=== PATIENT | female | born 1955 | race Caucasian/White ===

== ENCOUNTER → 2017-05-13 | Outpatient (CLI) | payer BC, MEDICAID ==
[2017-05-13 18:19] LABS: ABSOLUTE EOSINOPHILS # (AUTO) 0.1 10^3/uL (0.0-0.6); ABSOLUTE LYMPHOCYTES (AUTO) 0.9 10^3/uL (0.5-4.7); ABSOLUTE MONOCYTES (AUTO) 0.7 10^3/uL (0.1-1.4); ABSOLUTE NEUT (AUTO) 3.6 10^3/uL (1.7-8.2); BASOPHILS % (AUTO) 0.6 % (0-2); EOSINOPHILS % (AUTO) 2.7 % (0-6); HEMOGLOBIN 15.2 g/dL (12.0-15.5); HGB HCT DIFFERENCE 0.6; LYMPHOCYTES % (AUTO) 17.4 % (13-45); MEAN CORPUSCULAR HEMOGLOBIN 29.8 pg (27.0-33.4); MEAN CORPUSCULAR HGB CONC 33.8 g/dL (32.0-36.0); MEAN CORPUSCULAR VOLUME 88 fl (80-97); MONOCYTES % (AUTO) 12.9 % (3-13); RED BLOOD COUNT 5.11 10^6/uL (3.72-5.28); RED CELL DISTRIBUTION WIDTH 14.2 % (11.5-14.0); SEGMENTED NEUTROPHILS % (AUTO) 66.4 % (42-78); WHITE BLOOD COUNT 5.4 10^3/uL (4.0-10.5)
--- NOTE | 2017-05-13 18:24 | RADIOLOGY REPORT (SQ) ---
EXAM DESCRIPTION: CHEST PA/LAT COMPLETED DATE/TIME: 05/13/2017 6:16 pm REASON FOR STUDY: CHEST PAIN, UNSPECIFIED COMPARISON: None. EXAM PARAMETERS: NUMBER OF VIEWS: two views TECHNIQUE: Digital Frontal and Lateral radiographic views of the chest acquired. RADIATION DOSE: NA LIMITATIONS: none FINDINGS: LUNGS AND PLEURA: No opacities, masses or pneumothorax. No pleural effusion. MEDIASTINUM AND HILAR STRUCTURES: No masses or contour abnormalities. HEART AND VASCULAR STRUCTURES: Heart normal size. No evidence for failure. BONES: No acute findings. HARDWARE: None in the chest. OTHER: No other significant finding. IMPRESSION: NO SIGNIFICANT RADIOGRAPHIC FINDING IN THE CHEST. TECHNICAL DOCUMENTATION: JOB ID: [id number] [employer]- All Rights Reserved
[2017-05-13 18:41] LABS: ALANINE AMINOTRANSFERASE 25 U/L (9-52); ALBUMIN 4.6 g/dL (3.5-5.0); ALKALINE PHOSPHATASE 81 U/L (38-126); ANION GAP 12 (5-19); ASPARTATE AMINO TRANSFERASE 20 U/L (14-36); BILIRUBIN,DIRECT 0.3 mg/dL (0.0-0.4); BILIRUBIN,TOTAL 0.4 mg/dL (0.2-1.3); BLOOD UREA NITROGEN 20 mg/dL (7-20); CALCIUM 9.6 mg/dL (8.4-10.2); CARBON DIOXIDE 25 mmol/L (22-30); CHLORIDE 101 mmol/L (98-107); CREATINE KINASE 60 U/L (30-135); CREATININE RESULT 0.86 mg/dL (0.52-1.25); GLUCOSE 93 mg/dL (75-110); POTASSIUM 4.7 mmol/L (3.6-5.0); SODIUM 137.6 mmol/L (137-145); TOTAL PROTEIN 7.7 g/dL (6.3-8.2)
== END ==
LOC: OD 17:23
PROVIDERS: ATTEND Physician Assistant
DX: R07.9 Chest pain, unspecified (principal); R06.02 Shortness of breath
CPT/HCPCS: 36415; 71020; 80053; 82550; 82553; 84484; 85025; 85379

== ENCOUNTER 2017-07-03 21:20 | Inpatient (IN) | payer BC, MEDICAID ==
[2017-07-03] MEDS ORDERED: ASPIRIN 81 MG TABLET, CHEWABLE PO ONE (22:38)
[2017-07-03 23:54] LABS: ABSOLUTE BASOPHILS # (AUTO) 0.1 10^3/uL (0.0-0.2); ABSOLUTE EOSINOPHILS # (AUTO) 0.3 10^3/uL (0.0-0.6); ABSOLUTE LYMPHOCYTES (AUTO) 2.2 10^3/uL (0.5-4.7); ABSOLUTE NEUT (AUTO) 4.1 10^3/uL (1.7-8.2); BASOPHILS % (AUTO) 1.1 % (0-2); EOSINOPHILS % (AUTO) 3.6 % (0-6); HEMATOCRIT 45.4 % (36.0-47.0); HEMOGLOBIN 15.5 g/dL (12.0-15.5); HGB HCT DIFFERENCE 1.1; LYMPHOCYTES % (AUTO) 28.8 % (13-45); MEAN CORPUSCULAR HEMOGLOBIN 30.3 pg (27.0-33.4); MEAN CORPUSCULAR HGB CONC 34.1 g/dL (32.0-36.0); MEAN CORPUSCULAR VOLUME 89 fl (80-97); MONOCYTES % (AUTO) 12.9 % (3-13); RED BLOOD COUNT 5.12 10^6/uL (3.72-5.28); SEGMENTED NEUTROPHILS % (AUTO) 53.6 % (42-78); WHITE BLOOD COUNT 7.7 10^3/uL (4.0-10.5)
[2017-07-04 00:12] LABS: ALANINE AMINOTRANSFERASE 27 U/L (9-52); ALBUMIN 4.9 g/dL (3.5-5.0); ALKALINE PHOSPHATASE 83 U/L (38-126); ANION GAP 13 (5-19); ASPARTATE AMINO TRANSFERASE 25 U/L (14-36); BILIRUBIN,DIRECT 0.3 mg/dL (0.0-0.4); BILIRUBIN,TOTAL 0.4 mg/dL (0.2-1.3); BLOOD UREA NITROGEN 16 mg/dL (7-20); CALCIUM 10.2 mg/dL (8.4-10.2); CARBON DIOXIDE 28 mmol/L (22-30); CHLORIDE 99 mmol/L (98-107); CREATINE KINASE 141 U/L (30-135); CREATININE RESULT 0.79 mg/dL (0.52-1.25); GLUCOSE 85 mg/dL (75-110); POTASSIUM 4.2 mmol/L (3.6-5.0); SODIUM 139.9 mmol/L (137-145); TOTAL PROTEIN 8.1 g/dL (6.3-8.2)
[2017-07-04 00:22] LABS: CREATINE KINASE MB 2.15 ng/mL (<4.55)
[2017-07-04 00:26] LABS: TROPONIN I 0.053 ng/mL
[2017-07-04] MEDS ORDERED: NITROGLYCERIN 0.4 MG/TAB 25 TAB/BOTTLE SL PRN ×2 (00:33→00:38)
[2017-07-04] MEDS ORDERED: DIAZEPAM 5 MG TABLET PO PRN (00:38)
[2017-07-04] MEDS ORDERED: AMLODIPINE BESYLATE 5 MG TABLET PO ONE (00:43)
[2017-07-04] MEDS ORDERED: ENALAPRILAT DIHYDRATE INJ/PF 1.25 MG/1 ML SDV IV PRN (00:43)
--- NOTE | 2017-07-04 00:43 | ER Document Report ---
ED General - General Chief Complaint: Chest Pain Stated Complaint: CHEST PAIN Time Seen by Provider: 07/03/17 23:47 Notes: Patient is a 61-year-old female with past medical history of coronary artery disease, hypertension, hyperlipidemia, fibromyalgia, who presents with concerns of episodic chest pain over the last 6 weeks that was worse today. Patient states several times a day she has developed acute onset of left-sided pressure. Nothing seems to improve or worsen the symptoms. This was associated with shortness of breath and nausea but no radiation of the pain. States that she had an episode while in [facility] today and EMS was called and she was brought to the emergency department. She denies any active pain at time of my assessment. She has no prior history of an MO but did have a cardiac catheterization approximately 5 years ago which did show some atherosclerotic disease. She has been following with Dr. Harrell and recently had a cardiac stress test done which was noted to be normal. TRAVEL OUTSIDE OF THE [place] IN LAST 30 DAYS: No - Related Data Allergies/Adverse Reactions: cefaclor [From Ceclor] Allergy (Verified 11/04/16 13:22) Past Medical History - General Information source: Patient - Social History Smoking Status: Never Smoker Frequency of alcohol use: None Drug Abuse: None Lives with: Family Family History: Reviewed & Not Pertinent Patient has suicidal ideation: No Patient has homicidal ideation: No Neurological Medical History: Reports: Hx Migraine Renal/ Medical History: Denies: Hx Peritoneal Dialysis Musculoskeltal Medical History: Reports Hx Arthritis, Reports Hx Fibromyalgia Past Surgical History: Reports: Hx Breast Surgery, Hx Hysterectomy, Hx Orthopedic Surgery - Immunizations Hx Diphtheria, Pertussis, Tetanus Vaccination: Yes Review of Systems - Review of Systems Notes: Constitutional: Negative for fever. HENT: Negative for sore throat. Eyes: Negative for visual changes. Cardiovascular: Positive for chest pain. Respiratory: Positive for shortness of breath. Gastrointestinal: Negative for abdominal pain, vomiting or diarrhea. Genitourinary: Negative for dysuria. Musculoskeletal: Negative for back pain. Skin: Negative for rash. Neurological: Negative for headaches, weakness or numbness. 10 point ROS negative except as marked above and in HPI. Physical Exam - Vital signs Vitals: Pulse Resp BP Pulse Ox 64 16 173/93 H 99 07/03/17 21:45 07/03/17 21:45 07/03/17 21:45 07/03/17 21:45 Interpretation: Hypertensive Notes: PHYSICAL EXAMINATION: GENERAL: Well-appearing, well-nourished and in no acute distress. HEAD: Atraumatic, normocephalic. EYES: Pupils equal round and reactive to light, extraocular movements intact, sclera anicteric, conjunctiva are normal. ENT: nares patent, oropharynx clear without exudates. Moist mucous membranes. NECK: Normal range of motion, supple without lymphadenopathy LUNGS: Breath sounds clear to auscultation bilaterally and equal. No wheezes rales or rhonchi. HEART: Regular rate and rhythm without murmurs ABDOMEN: Soft, nontender, normoactive bowel sounds. No guarding, no rebound. No masses appreciated. EXTREMITIES: Normal range of motion, no pitting or edema. No cyanosis. NEUROLOGICAL: No focal neurological deficits. Moves all extremities spontaneously and on command. PSYCH: Normal mood, normal affect. SKIN: Warm, Dry, normal turgor, no rashes or lesions noted. Course - Re-evaluation Re-evalutation: 07/04/17 00:38 Presentation of chest pain in an otherwise well appearing patient. Low clinical suspicion for ACS given clinical history, exam, EKG without ST elevations or depressions. However patient does have a moderately elevated troponin. 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 PE also seems unlikely given clinical history, absence of tachycardia or dyspnea. CXR without evidence of pneumothorax or pneumonia. No widened mediastinum. Aortic dissection also seems unlikely given history, symmetric pulses, CXR, and vitals. - Vital Signs Vital signs: Temp Pulse Resp BP Pulse Ox 64 13 165/103 H 96 07/03/17 21:45 07/04/17 02:31 07/04/17 02:31 07/04/17 02:31 - Laboratory Result Diagrams: 07/03/17 23:40 07/03/17 23:40 Laboratory results interpreted by me: 07/03/17 23:40 Creatine Kinase 141 H - Diagnostic Test Radiology reviewed: Image reviewed, Reports reviewed Radiology results interpreted by me: 07/04/17 02:48 Chest x-ray: No acute infiltrate or pneumothorax - EKG Interpretation by Me Additional EKG results interpreted by me: 07/04/17 00:39 Normal sinus rhythm. Rate 67. No ST elevations or depressions. T-wave inversions in V2 V3. QTC is 414. Discharge - Discharge Clinical Impression: Elevated troponin Chest pain Qualifiers: Chest pain type: unspecified Qualified Code(s): R07.9 - Chest pain, unspecified Condition: Good Disposition: ADMITTED OBSERVATION Admitting Provider: [facility] Unit Admitted: [facility]
[2017-07-04] MEDS: MORPHINE SULFATE 10 MG/ML INJ IV PRN ×3 (01:06→17:54)
[2017-07-04] MEDS ORDERED: HEPARIN SOD (PORCINE) 5,000 UNIT/ML 1 ML SYRINGE SUBCUT ONE (01:15)
[2017-07-04] MEDS ORDERED: ATORVASTATIN CALCIUM 80 MG TABLET PO ONE (01:15)
[2017-07-04] MEDS ORDERED: ACETAMINOPHEN 325 MG TABLET PO PRN (01:47)
--- NOTE | 2017-07-04 02:49 | RADIOLOGY REPORT (SQ) ---
EXAM DESCRIPTION: CHEST SINGLE VIEW COMPLETED DATE/TIME: 07/04/2017 1:50 am REASON FOR STUDY: CP COMPARISON: 05/13/2017. EXAM PARAMETERS: NUMBER OF VIEWS: One view. TECHNIQUE: Single frontal radiographic view of the chest acquired. RADIATION DOSE: NA LIMITATIONS: None. FINDINGS: LUNGS AND PLEURA: Minimal chronic left lower lobar atelectasis or scar. MEDIASTINUM AND HILAR STRUCTURES: No masses. Contour normal. HEART AND VASCULAR STRUCTURES: Heart normal in size. Normal vasculature. BONES: [id number] disc desiccation. HARDWARE: None in the chest. OTHER: No other significant finding. IMPRESSION: NO ACUTE RADIOGRAPHIC FINDING IN THE CHEST. TECHNICAL DOCUMENTATION: JOB ID: [id number]
[2017-07-04] MEDS ORDERED: HEPARIN SOD (PORCINE) 5,000 UNIT/ML 1 ML SYRINGE SUBCUT SCH ×2 (06:00)
[2017-07-04 06:17] LABS: Direct HDL 62 mg/dL (>40); TRIGLYCERIDES 178 mg/dL (<150)
[2017-07-04 06:27] LABS: DIRECT LDL 284 mg/dL (<100)
[2017-07-04 06:28] LABS: CHOLESTEROL 384.04 mg/dL (0-200); CREATINE KINASE MB 1.9 ng/mL (<4.55); TROPONIN I 0.062 ng/mL; VLDL CHOLESTEROL 35.6 mg/dL (10-31)
[2017-07-04] MEDS: LANSOPRAZOLE 15 MG TAB.RAP.DR PO SCH ×2 (06:57→17:54)
--- NOTE | 2017-07-04 08:24 | EKG REPORT ---
SEVERITY:- ABNORMAL ECG - SINUS RHYTHM PROBABLE LEFT ATRIAL ABNORMALITY NONSPECIFIC T ABNORMALITIES, ANT-LAT LEADS : Confirmed by: Socrates Nieto MD 04-Jul-2017 08:23:50
[2017-07-04] MEDS ORDERED: CARISOPRODOL 350 MG TABLET PO PRN (09:13)
[2017-07-04] MEDS ORDERED: ACETAMINOPHEN PO SCH (10:00)
[2017-07-04] MEDS ORDERED: DOCUSATE SODIUM 100 MG CAPSULE PO SCH (10:00)
[2017-07-04] MEDS ORDERED: [UNRECOGNIZED DRUG - OTHER] PO SCH (10:00)
[2017-07-04] MEDS ORDERED: ASPIRIN PO SCH (10:00)
[2017-07-04] MEDS ORDERED: VERAPAMIL HCL 240 MG TABLET.SA PO SCH (10:00)
[2017-07-04] MEDS: METOPROLOL TARTRATE 50 MG TABLET PO SCH ×2 (10:02→21:17)
[2017-07-04] MEDS: HYDROCODONE/ACETAMINOPHEN 10-325 MG TABLET PO PRN ×2 (10:02→23:04)
[2017-07-04] MEDS: ALPRAZOLAM 0.5 MG TABLET PO PRN ×2 (10:02→20:01)
--- NOTE | 2017-07-04 10:38 | PDOC CONSULTATION ---
Consultation Consult Date: 07/04/17 Attending physician:: ADILENE ARTEAGA Consult reason:: Chest pain History of Present Illness Admission Date/PCP: 07/04/17 01:48 ADILENE ARTEAGA MD Patient complains of: Chest pain History of Present Illness: Patient is a 61-year-old female with past medical history of coronary artery disease, hypertension, hyperlipidemia, fibromyalgia, who presents with concerns of episodic chest pain over the last 6 weeks that was worse today. Patient states several times a day she has developed acute onset of left-sided pressure. Nothing seems to improve or worsen the symptoms. This was associated with shortness of breath and nausea but no radiation of the pain. States that she had an episode while in [facility] today and EMS was called and she was brought to the emergency department. She denies any active pain at time of my assessment. She has no prior history of an ME but did have a cardiac catheterization approximately 5 years ago which did show some atherosclerotic disease. She has been followed by me and recently had a cardiac stress test done which was noted to be normal. Patient had probably an EKG in the office which were all relatively unremarkable. EKG in hospital showed some nonspecific T-wave inversion in anterior precordial lead. Cardiac enzymes are in the indeterminate range. Patient claims that she had approximately 50% blockage in 1 of the coronary arteries by a heart catheterization performed at the [facility] in [facility]. We are trying to obtain those records. Patient also describes history of fibromyalgia. She is noted to have severe dyslipidemia but has been intolerant of statins in the past. She is not sure what statins she has used. Past Medical History Cardiac Medical History: Reports: Coronary Artery Disease Neurological Medical History: Reports: Migraine Musculoskeltal Medical History: Reports: Arthritis, Fibromyalgia Psychiatric Medical History: Reports: Depression Past Surgical History Past Surgical History: Reports: Hysterectomy, Orthopedic Surgery Social History Information Source: Patient Lives with: Family Smoking Status: Former Smoker Cigarettes Packs Per Day: 0.2 Pipes Per Day: 3 Frequency of Alcohol Use: None Hx Recreational Drug Use: No Hx Prescription Drug Abuse: No - Advance Directive Resuscitation Status: Full Code Surrogate healthcare decision maker:: Patient children at the surrogate decision-maker especially patient's son. Family History Family History: Reviewed & Not Pertinent Parental Family History Reviewed: Yes Children Family History Reviewed: Yes Sibling(s) Family History Reviewed.: Yes - Negative for premature coronary artery disease or sudden cardiac in the family amongst first degree relatives. Medication/Allergy Home Medications: Alprazolam [Xanax 0.5 mg Tablet] 0.5 mg PO Q8HP PRN 07/04/17 Aspirin/Acetaminophen/Caffeine [Excedrin Extra Strength Caplet] 1 tab PO DAILY 07/04/17 Carisoprodol [Soma 350 Mg Tablet] 350 mg PO Q6HP PRN 07/04/17 Duloxetine HCl 30 mg PO QHS 07/04/17 Hydrocodone Bit/Acetaminophen [Hydrocodon-Acetaminophn 10-325] 1 tab PO Q4HP PRN 07/04/17 Metoprolol Tartrate [Lopressor 50 mg Tablet] 50 mg PO Q12 07/04/17 Verapamil HCl [Verapamil ER] 240 mg PO DAILY 07/04/17 Zolpidem Tartrate [Ambien] 10 mg PO QHS 07/04/17 Allergies/Adverse Reactions: cefaclor [From Ceclor] Allergy (Verified 11/04/16 13:22) Review of Systems Review of Systems: Please see history of present illness and past medical history as wall. Constitutional: No fever or chills reported. Head : No recent chronic headaches, recent head injury. History of migraine headaches. Eyes: No recent eye pain, diplopia, redness, discharge, acute visual changes. Ears: No recent chronic ear pain, acute hearing loss, ear discharge. Oral cavity: No recent ulcerations, bleeding, oral cavity discomfort. Neck: No recent acute neck pain reported. Hematologic: No recent easy bruising or bleeding or hematologic malignancy reported. Lymphatic: No recent lymphatic malignancy, chronic lymphadenopathy reported yet Cardiovascular system review: See history of present illness. Respiratory system review: No recent chronic cough, hemoptysis, blood clots in the lungs reported. Mild Shortness of breath on exertion Gastrointestinal system review: Negative for any recent acute or chronic abdominal pain, hematemesis, melena, recent change in bowel habits. Genitourinary system review: No recent acute or chronic hematuria, flank pain, UTI etc. reported. Skin system review: Negative for any recent abnormal bruising, no rash, no pruritus reported. Neurologic: No prior history of strokes, mini strokes, seizure disorder. Psychologic: No history of major psychosis or major depression reported. History of minor depression. Musculoskeletal: Significant problems with arthritis and fibromyalgia no acute joint swelling reported. Endocrine: No recent polyuria, polydipsia, recent heat or cold intolerance. Physical Exam Vital Signs: Temp Pulse Resp BP Pulse Ox 98.1 F 65 18 152/84 H 98 07/04/17 07:30 07/04/17 07:30 07/04/17 07:30 07/04/17 07:30 07/04/17 07:30 Intake & Output 07/03/17 07/04/17 07/05/17 06:59 06:59 06:59 Intake Total 3 Balance 3 Weight 75 kg Exam: GENERAL: well-nourished and in no acute distress. Alert and oriented x3 HEAD: Atraumatic, normocephalic. EYES: Pupils equal round and reactive to light, extraocular movements intact, sclera anicteric, conjunctiva are normal. ENT: TMs normal, nares patent, oropharynx clear without exudates. Moist mucous membranes. No oral ulcerations or bleeding gums noted NECK: supple without lymphadenopathy. Trachea is central. No cervical or axillary lymphadenopathy noted. Carotids are 2+, JVD WNL LUNGS: Respiration seems nonlabored, no significant accessory muscle action noted. Breath sounds clear to auscultation bilaterally and equal noted. No wheezes rales or rhonchi noted. No significant dullness noted on percussion. CHEST: Palpation of the chest wall shows no significant chest wall tenderness. No other significant abnormalities noted. Left-sided chest wall tenderness noted. HEART: Moro [employer], No PSH, 1/6 PHUONG aortic area, 1/6 yoder systolic murmur mitral area, no rubs, no gallops. ABDOMEN: Soft, no significant tenderness appreciated, normoactive bowel sounds. No guarding, no rebound. No rigidity noted . No masses appreciated. EXTREMITIES: Pedal pulses are 1-2+, no calf tenderness noted. No clubbing or cyanosis. Negative pedal edema noted NEUROLOGICAL: Focused neurological exam showed no significant neurologic deficit. Normal speech, no focal weakness appreciated. PSYCH: Normal mood, normal affect. Judgment and insight within normal limits. SKIN: No significant ecchymosis, rash, ulcerations or signs of pruritus noted. MUSCULOSKELETAL EXAM: No significant joint swelling noted. Results Laboratory Results: 07/04/17 05:40 Triglycerides 178 H Cholesterol 384.04 H LDL Cholesterol Direct 284 H VLDL Cholesterol 35.6 H HDL Cholesterol 62 07/04/17 07/04/17 01:55 05:40 CK-MB (CK-2) 1.90 Troponin I 0.058 0.062 EKG Comments: Sinus rhythm, minor nonspecific T-wave inversion noted Impressions: Chest X-Ray 07/03/17 22:38 IMPRESSION: NO ACUTE RADIOGRAPHIC FINDING IN THE CHEST. Assessment & Plan - Diagnosis (1) Chest pain Qualifiers: Chest pain type: unspecified Qualified Code(s): R07.9 - Chest pain, unspecified Is this a current diagnosis for this admission?: Yes (2) Acute coronary syndrome Is this a current diagnosis for this admission?: Yes (3) Coronary artery disease Qualifiers: Coronary Disease-Associated Artery/Lesion type: unspecified vessel or lesion type Associated angina: angina presence unspecified (4) Dyslipidemia Is this a current diagnosis for this admission?: Yes (5) Fibromyalgia Is this a current diagnosis for this admission?: Yes (6) Dysthymia (or depressive neurosis) Is this a current diagnosis for this admission?: Yes (7) Elevated troponin Is this a current diagnosis for this admission?: Yes (8) Hypertension Qualifiers: Hypertension type: essential hypertension Qualified Code(s): I10 - Essential (primary) hypertension Is this a current diagnosis for this admission?: Yes - Notes Notes: Chest pain: There are multiple differential diagnosis. A recent stress test was noted to be negative. Patient's troponin I is in the indeterminate range. EKG shows minor nonspecific T inversion. Agree with CTA of the chest to evaluate for other causes of chest pain and also look for any coronary calcification. Agree with ultrasound of the gallbladder. If patient continues with chest pain will refer for heart catheterization. In fact this was scheduled as an outpatient with performed on July 22 or at [facility]. Acute coronary syndrome: This is being suspected. Coronary artery disease: Patient describes history of approximately 50% lesion in 1 of the coronary arteries by a previous heart catheterization. Will try to obtain those records. Dyslipidemia: Patient has significant dyslipidemia which can cause endothelial dysfunction. Have placed patient on Lipitor 40 mg p.o. nightly. LDL extremely high therefore may need PCSK9 inhibitor therapy and may need to be qualified for that. Hypertension: Patient on verapamil and also metoprolol. Will add SHRADDHA inhibitor to the regimen. Dysthymia: Patient has depressive neurosis. There is a lot of psychological overlay. Patient noted to have dysthymia. Continue Cymbalta may consider increasing the dose. Elevated troponin I in the indeterminate range to be evaluated further. - Time Time Spent: 30 to 50 Minutes - CODE STATUS was discussed, patient remains full code. Surrogate decision-maker unchanged. Multiple medical problems were addressed. More than 50% of the time spent coordinating care, discussing management plans with involved caregivers. Management plans discussed with involved personnels. Medical decision making was of moderate to high complexity , patient's has multiple comorbidities. Medications reviewed and adjusted accordingly: Yes
--- NOTE | 2017-07-04 11:17 | RADIOLOGY REPORT (SQ) ---
EXAM DESCRIPTION: CTA CHEST COMPLETED DATE/TIME: 07/04/2017 10:58 am REASON FOR STUDY: chest pain COMPARISON: AP chest 07/04/2017 TECHNIQUE: CT scan of the chest performed using helical scanning technique with dynamic intravenous contrast injection. Images reviewed with lung, soft tissue and bone windows. Reconstructed coronal and sagittal MPR images reviewed. Additional 3 dimensional post-processing performed to develop Maximal Intensity Projection images (LA P). All images stored on PACS. All CT scanners at this facility use dose modulation, iterative reconstruction, and/or weight based d osing when appropriate to reduce radiation dose to as low as reasonably achievable (ALARA). [facility]: Dose Right [facility]: CareDose [facility]: Dose Right [facility]: Teradose 4D [facility]: oneforty CONTRAST TYPE AND DOSE: contrast/concentration: Isovue 370.00 mg/ml; Total Contrast Delivered: 110.5 ml; Total Saline Delivered: 168.1 ml RENAL FUNCTION: Creatinine 0.77 RADIATION DOSE: Up-to-date CT equipment and radiation dose reduction techniques were employed. CTDIv ol: 12.1 - 18.8 mGy. DLP: 439 mGy-cm. . LIMITATIONS: None. FINDINGS: LUNGS AND PLEURA: Bibasilar bandlike atelectasis is present. No pleural effusions. No pu lmonary nodules. No pneumothorax. AORTA AND GREAT VESSELS: No aneurysm or dissection. HEART: Trace pericardial fluid. Borderline cardiomegaly. Minimal coronary artery calcifications. PULMONARY ARTERIES: No emboli visualized in the main pulmonary arteries or the segmental branches. HILAR AND MEDIASTINAL STRUCTURES: No identified masses or abnormal nodes. HARDWARE: None in the chest. UPPER ABDOMEN: There is abnormal thickening of the gastric fundal wall on axial image 91. There are multiple hypodense liver lesions present. Dedicated CT abdomen pelvis with oral and IV contrast is r ecommended. Liver lesions identified today include: Right lobe liver 1.2 cm diameter axial image 92 Left lobe liver 2.4 x 1.8 cm axial image 92 Left lobe liver 2 x 2 cm axial image 102 THYROID AND OTHER SOFT TISSUES: No masses. No adenopathy. BONES: No acute or significant finding. 3D MIPS: Confirm above findings. OTHER: No other significant finding. IMPRESSION: Bibasilar bandlike atelectasis No CT evidence of acute pulmonary emboli or thoracic aortic dissection Abnormal gastric fundal wall thickening with liver lesions, findings are worrisome for malignancy. C onsider follow-up CT abdomen pelvis with oral and IV contrast TECHNICAL DOCUMENTATION: JOB ID: [id number] Quality ID # [id number]: Final reports with documentation of one or more dose reduction techniques (e.g., Au tomated exposure control, adjustment of the mA and/or kV according to patient size, use of iterative reconstruction technique) 2010 [employer]- All Rights Reserved
--- NOTE | 2017-07-04 11:43 | PDOC H&P ---
History of Present Illness Admission Date/PCP: 07/04/17 01:48 ADILENE ARTEAGA MD Patient complains of: Chest pain History of Present Illness: Patient is a 61-year-old female with past medical history of coronary artery disease, hypertension, hyperlipidemia, fibromyalgia, who presents with concerns of episodic chest pain over the last 6 weeks that was worse today. Patient states several times a day she has developed acute onset of left-sided pressure. Nothing seems to improve or worsen the symptoms. This was associated with shortness of breath and nausea but no radiation of the pain. States that she had an episode while in [facility] today and EMS was called and she was brought to the emergency department. She denies any active pain at time of my assessment. She has no prior history of an HI but did have a cardiac catheterization approximately 5 years ago which did show some atherosclerotic disease. She has been followed by me and recently had a cardiac stress test done which was noted to be normal. Patient had probably an EKG in the office which were all relatively unremarkable. EKG in hospital showed some nonspecific T-wave inversion in anterior precordial lead. Cardiac enzymes are in the indeterminate range. Patient claims that she had approximately 50% blockage in 1 of the coronary arteries by a heart catheterization performed at the [facility] in [facility]. We are trying to obtain those records. Patient also describes history of fibromyalgia. She is noted to have severe dyslipidemia but has been intolerant of statins in the past. She is not sure what statins she has used. Patient otherwise currently denied any chest pain patient initial cardiac enzymes so far indeterminant. Since denied any abdominal pain patient was CT angiogram done was negative for any acute pulmonary embolism but showing some liver lesion Past Medical History Cardiac Medical History: Reports: Coronary Artery Disease Neurological Medical History: Reports: Migraine Musculoskeltal Medical History: Reports: Arthritis, Fibromyalgia Psychiatric Medical History: Reports: Depression, General Anxiety Disorder Past Surgical History Past Surgical History: Reports: Hysterectomy, Orthopedic Surgery Social History Lives with: Family Smoking Status: Former Smoker Cigarettes Packs Per Day: 0.2 Pipes Per Day: 3 Frequency of Alcohol Use: None Hx Recreational Drug Use: No Hx Prescription Drug Abuse: No - Advance Directive Resuscitation Status: Full Code Family History Family History: Reviewed & Not Pertinent Parental Family History Reviewed: Yes Children Family History Reviewed: Yes Sibling(s) Family History Reviewed.: Yes Medication/Allergy Home Medications: Alprazolam [Xanax 0.5 mg Tablet] 0.5 mg PO Q8HP PRN 07/04/17 Aspirin/Acetaminophen/Caffeine [Excedrin Extra Strength Caplet] 1 tab PO DAILY 07/04/17 Carisoprodol [Soma 350 Mg Tablet] 350 mg PO Q6HP PRN 07/04/17 Duloxetine HCl 30 mg PO QHS 07/04/17 Hydrocodone Bit/Acetaminophen [Hydrocodon-Acetaminophn 10-325] 1 tab PO Q4HP PRN 07/04/17 Metoprolol Tartrate [Lopressor 50 mg Tablet] 50 mg PO Q12 07/04/17 Verapamil HCl [Verapamil ER] 240 mg PO DAILY 07/04/17 Zolpidem Tartrate [Ambien] 10 mg PO QHS 07/04/17 Allergies/Adverse Reactions: cefaclor [From Ceclor] Allergy (Verified 11/04/16 13:22) Review of Systems Constitutional: ABSENT: chills, fever(s), headache(s), weight gain, weight loss Eyes: ABSENT: visual disturbances Ears: ABSENT: hearing changes Cardiovascular: PRESENT: chest pain. ABSENT: dyspnea on exertion, edema, orthropnea, palpitations Respiratory: ABSENT: cough, hemoptysis Gastrointestinal: ABSENT: abdominal pain, constipation, diarrhea, hematemesis, hematochezia, nausea, vomiting Genitourinary: ABSENT: dysuria, hematuria Musculoskeletal: ABSENT: joint swelling Integumentary: ABSENT: rash, wounds Neurological: ABSENT: abnormal gait, abnormal speech, confusion, dizziness, focal weakness, syncope Psychiatric: ABSENT: anxiety, depression, homidical ideation, suicidal ideation Endocrine: ABSENT: cold intolerance, heat intolerance, menstrual abnormalities, polydipsia, polyuria Hematologic/Lymphatic: ABSENT: easy bleeding, easy bruising, lymphadenopathy Physical Exam Vital Signs: Temp Pulse Resp BP Pulse Ox 98.1 F 65 18 152/84 H 98 07/04/17 07:30 07/04/17 07:30 07/04/17 07:30 07/04/17 07:30 07/04/17 07:30 Intake & Output 07/03/17 07/04/17 07/05/17 06:59 06:59 06:59 Intake Total 3 Balance 3 Weight 75 kg General appearance: PRESENT: no acute distress, well-developed, well-nourished Head exam: PRESENT: atraumatic, normocephalic Eye exam: PRESENT: conjunctiva pink, EOMI, PERRLA. ABSENT: scleral icterus Ear exam: PRESENT: normal external ear exam Mouth exam: PRESENT: moist, tongue midline Neck exam: PRESENT: full ROM. ABSENT: carotid bruit, JVD, lymphadenopathy, thyromegaly Respiratory exam: PRESENT: clear to auscultation fareed Cardiovascular exam: PRESENT: RRR. ABSENT: diastolic murmur, rubs, systolic murmur Pulses: PRESENT: normal dorsalis pedis pul, +2 pedal pulses bilateral Vascular exam: PRESENT: normal capillary refill GI/Abdominal exam: PRESENT: normal bowel sounds, soft. ABSENT: distended, guarding, mass, organolmegaly, rebound, tenderness Rectal exam: PRESENT: deferred Neurological exam: PRESENT: alert, awake, oriented to person, oriented to place , oriented to time, oriented to situation, CN II-XII grossly intact. ABSENT: motor sensory deficit Psychiatric exam: PRESENT: appropriate affect, normal mood. ABSENT: homicidal ideation, suicidal ideation Skin exam: PRESENT: dry, intact, warm. ABSENT: cyanosis, rash Results Laboratory Results: 07/04/17 05:40 Triglycerides 178 H Cholesterol 384.04 H LDL Cholesterol Direct 284 H VLDL Cholesterol 35.6 H HDL Cholesterol 62 07/04/17 07/04/17 01:55 05:40 CK-MB (CK-2) 1.90 Troponin I 0.058 0.062 Impressions: Chest X-Ray 07/03/17 22:38 IMPRESSION: NO ACUTE RADIOGRAPHIC FINDING IN THE CHEST. Chest/Abdomen CTA 07/04/17 00:00 IMPRESSION: Bibasilar bandlike atelectasis No CT evidence of acute pulmonary emboli or thoracic aortic dissection Abnormal gastric fundal wall thickening with liver lesions, findings are worrisome for malignancy. Consider follow-up CT abdomen pelvis with oral and IV contrast Assessment & Plan - Diagnosis (1) Chest pain Qualifiers: Chest pain type: unspecified Qualified Code(s): R07.9 - Chest pain, unspecified Is this a current diagnosis for this admission?: YesPlan: Admit the patient in [facility] rule out acute coronary syndrome and patient recently have a stress test done by Dr. Harrell was negative with consult to Dr. Harrell for further evaluations (2) Coronary artery disease Qualifiers: Coronary Disease-Associated Artery/Lesion type: unspecified vessel or lesion type Associated angina: angina presence unspecified Is this a current diagnosis for this admission?: YesPlan: According to the patient she had a cardiac cath done in 2012 at [place] with some coronary artery disease but did not require any stent or any surgery will follow with the cardiology (3) Chronic pain syndrome Is this a current diagnosis for this admission?: YesPlan: She is currently on a chronic pain medications and getting the pain medications from the [place] patients 3 months over there (4) Dyslipidemia Is this a current diagnosis for this admission?: YesPlan: Start the patient on the Lipitor (5) Fibromyalgia Is this a current diagnosis for this admission?: YesPlan: Continues current medication (6) Hypertension Qualifiers: Hypertension type: essential hypertension Qualified Code(s): I10 - Essential (primary) hypertension Is this a current diagnosis for this admission?: YesPlan: Continues current medication and adjust the blood pressure medications (7) Depression Qualifiers: Depression Type: major depressive disorder Is this a current diagnosis for this admission?: Yes (8) Anxiety disorder Qualifiers: Anxiety disorder type: generalized anxiety disorder Qualified Code(s ): F41.1 - Generalized anxiety disorder Is this a current diagnosis for this admission?: Yes (9) Liver lesion Is this a current diagnosis for this admission?: YesPlan: Will get the CT abdomen and pelvis with IV and p.o. contrast to rule out further evaluations - Time Time Spent: 30 to 50 Minutes Medications reviewed and adjusted accordingly: Yes Anticipated discharge: Home Within: Other - Inpatient Certification Medical Necessity: Need Close Monitoring Due to Risk of Patient Decompensation Post Hospital Care: D/C Guest Service Representative Documentation - Plan Summary Plan Summary: Discussed with the patient and the cardiology and admit the patient and see other orders
[2017-07-04] MEDS: RAMIPRIL 2.5 MG CAPSULE PO SCH (13:48)
--- NOTE | 2017-07-04 15:54 | RADIOLOGY REPORT (SQ) ---
EXAM DESCRIPTION: U/S ABDOMEN COMPLETE W/O DOP COMPLETED DATE/TIME: 07/04/2017 3:08 pm REASON FOR STUDY: epigastric pain COMPARISON: None. TECHNIQUE: Dynamic and static grayscale images acquired of the abdomen and recorded on PACS. Kevino danny selected color Doppler and spectral images recorded. LIMITATIONS: None. FINDINGS: PANCREAS: The head of the pancreas is normal. The body and tail were obscured by gas. LIVER: 17.4 cm. There are multiple slightly hyperechoic lesions in the liver. The largest is in the left lobe and measures 24 mm in largest diameter. A 2nd lesion in the left lobe measures 19 mm. A lesion in the right lobe measures 23 mm. LIVER VASCULATURE: Normal directional flow of the main portal vein and hepatic veins. GALLBLADDER: No stones. Normal wall thickness. No pericholecystic fluid. ULTRASOUND-DETECTED BRADSHAW'S SIGN: Negative. INTRAHEPATIC DUCTS AND COMMON DUCT: The common bile duct is normal at 4 mm. There is no intrahepatic ductal dilatation. INFERIOR VENA CAVA: Normal flow. AORTA: No aneurysm. RIGHT KIDNEY: Normal size, 10.4 cm. Normal echogenicity. No solid or suspicious masses. No hyd ronephrosis. No calcifications. LEFT KIDNEY: Normal size, 9.7 cm. Normal echogenicity. No solid or suspicious masses. No hydro nephrosis. No calcifications. SPLEEN: Normal size, 8.9 cm. No masses. PERITONEAL AND PLEURAL SPACES: No ascites or effusions. OTHER: No other significant finding. IMPRESSION: There are multiple slightly hyperechoic lesions in the liver. They do not appear to be echogenic to the degree that a hemangioma might be. These certainly could represent metastatic neopl asm. Neoplasms that can produce hyperechoic metastases included colon, or renal cell, choriocarcinom a, carcinoid, pancreatic islet cell tumors. TECHNICAL DOCUMENTATION: JOB ID: [id number] [employer]- All Rights Reserved
[2017-07-04] MEDS: ZOLPIDEM TARTRATE 5 MG TABLET PO SCH (21:16)
[2017-07-04] MEDS: ATORVASTATIN CALCIUM 40 MG TABLET PO SCH (21:16)
[2017-07-04] MEDS ORDERED: DULOXETINE HCL 30 MG CAPSULE.DR PO SCH (22:00)
[2017-07-04] MEDS ORDERED: (PENDING PHARMACY ID) (Zolpidem Tartrate [Ambien] 10 MG) PO SCH (22:00)
[2017-07-04] MEDS ORDERED: ATORVASTATIN CALCIUM 80 MG TABLET PO SCH (22:00)
[2017-07-04] MEDS ORDERED: ATORVASTATIN CALCIUM 40 MG TABLET PO SCH (22:00)
[2017-07-05] MEDS: HYDROCODONE/ACETAMINOPHEN 10-325 MG TABLET PO PRN ×4 (04:40→22:05)
[2017-07-05 06:18] LABS: ABSOLUTE EOSINOPHILS # (AUTO) 0.4 10^3/uL (0.0-0.6); ABSOLUTE LYMPHOCYTES (AUTO) 1.7 10^3/uL (0.5-4.7); ABSOLUTE MONOCYTES (AUTO) 0.8 10^3/uL (0.1-1.4); ABSOLUTE NEUT (AUTO) 2.4 10^3/uL (1.7-8.2); BASOPHILS % (AUTO) 0.6 % (0-2); EOSINOPHILS % (AUTO) 6.9 % (0-6); LYMPHOCYTES % (AUTO) 32.4 % (13-45); MEAN CORPUSCULAR HEMOGLOBIN 30.6 pg (27.0-33.4); MEAN CORPUSCULAR HGB CONC 34.2 g/dL (32.0-36.0); MEAN CORPUSCULAR VOLUME 90 fl (80-97); MONOCYTES % (AUTO) 15.8 % (3-13); RED BLOOD COUNT 4.58 10^6/uL (3.72-5.28); SEGMENTED NEUTROPHILS % (AUTO) 44.3 % (42-78); WHITE BLOOD COUNT 5.3 10^3/uL (4.0-10.5)
[2017-07-05 06:20] LABS: ALANINE AMINOTRANSFERASE 25 U/L (9-52); ALKALINE PHOSPHATASE 68 U/L (38-126); ANION GAP 10 (5-19); ASPARTATE AMINO TRANSFERASE 17 U/L (14-36); BILIRUBIN,DIRECT 0.2 mg/dL (0.0-0.4); BILIRUBIN,TOTAL 0.4 mg/dL (0.2-1.3); BLOOD UREA NITROGEN 23 mg/dL (7-20); CALCIUM 9.1 mg/dL (8.4-10.2); CARBON DIOXIDE 23 mmol/L (22-30); CHLORIDE 104 mmol/L (98-107); CREATININE RESULT 0.86 mg/dL (0.52-1.25); GLUCOSE 95 mg/dL (75-110); POTASSIUM 4.4 mmol/L (3.6-5.0); SODIUM 136.5 mmol/L (137-145); TOTAL PROTEIN 6.7 g/dL (6.3-8.2)
[2017-07-05] MEDS: METOPROLOL TARTRATE 50 MG TABLET PO SCH ×2 (09:02→22:06)
[2017-07-05] MEDS: ONDANSETRON HCL INJ/PF 4 MG/2 ML SDV IV PRN (09:02)
[2017-07-05] MEDS: AMLODIPINE BESYLATE 5 MG TABLET PO SCH (09:03)
[2017-07-05] MEDS: ALPRAZOLAM 0.5 MG TABLET PO PRN ×2 (09:05→18:20)
--- NOTE | 2017-07-05 10:05 | EKG REPORT ---
SEVERITY:- ABNORMAL ECG - SINUS RHYTHM PROBABLE LEFT ATRIAL ABNORMALITY NONSPECIFIC T ABNORMALITIES, ANT-LAT LEADS : Confirmed by: Socrates Nieto MD 05-Jul-2017 10:05:25
--- NOTE | 2017-07-05 11:43 | RADIOLOGY REPORT (SQ) ---
EXAM DESCRIPTION: CT ABD/PELVIS WITH IV ORAL COMPLETED DATE/TIME: 07/05/2017 10:40 am REASON FOR STUDY: ABNORMAL LIVER LESION COMPARISON: Abdominal ultrasound 07/04/2017 CT angio chest 07/04/2017 TECHNIQUE: CT scan of the abdomen and pelvis performed using helical scanning technique with dynamic intravenous contrast injection. Patient drank oral contrast. Images reviewed with lung, soft tissue , and bone windows. Reconstructed coronal and sagittal MPR images reviewed. Delayed images for evalua tion of the urinary system also acquired. All images stored on PACS. All CT scanners at this facility use dose modulation, iterative reconstruction, and/or weight based d osing when appropriate to reduce radiation dose to as low as reasonably achievable (ALARA). [facility]: Dose Right [facility]: CareDose [facility]: Dose Right [facility]: Teradose 4D [facility]: KupiKupon CONTRAST TYPE AND DOSE: contrast/concentration: Isovue 370.00 mg/ml; Total Contrast Delivered: 79.9 ml; Total Saline Delivered: 24.1 ml RENAL FUNCTION: Creatinine 0.8 RADIATION DOSE: Up-to-date CT equipment and radiation dose reduction techniques were employed. CTDIv ol: 11.8 - 16.0 mGy. DLP: 1479 mGy-cm.. LIMITATIONS: None. FINDINGS: The 3 liver lesions identified on ultrasound and prior noncontrast CT exams 07/04/2017 demon strate classic peripheral nodular rim enhancement of hemangiomas. 1.6 cm in size right lobe liver im age 32, 2 cm in size left lobe liver axial image 32, 3 cm in diameter in the sub- diaphragmatic surfa ce left lobe liver. The gastric fundal wall thickening has resolved, patient drank oral contrast which distended stomach. LOWER CHEST: Bandlike bibasilar atelectasis. LIVER: Liver hemangiomas. No dilated ducts. SPLEEN: Normal size. No focal lesions. PANCREAS: No masses. No significant calcifications. No adjacent inflammation or peripancreatic fluid collections. Pancreatic duct not dilated. GALLBLADDER: No identified stones by CT criteria. No inflammatory changes to suggest cholecystitis. ADRENAL GLANDS: No significant masses or asymmetry. RIGHT KIDNEY AND URETER: No solid masses. No significant calcifications. No hydronephrosis or hyd roureter. LEFT KIDNEY AND URETER: No solid masses. No significant calcifications. No hydronephrosis or hydr oureter. AORTA AND VESSELS: No aneurysm. No dissection. Renal arteries, SMA, celiac without stenosis. RETROPERITONEUM: No retroperitoneal adenopathy, hemorrhage or masses. BOWEL AND PERITONEAL CAVITY: No masses or inflammatory changes. No free fluid or peritoneal masses. Few colonic diverticuli without CT signs of diverticulitis. Patient drank oral contrast without evid ence of bowel obstruction. APPENDIX: Normal. PELVIS: No mass. No free fluid. Normal bladder. Post hysterectomy. ABDOMINAL WALL: No masses. No hernias. BONES: Degenerative changes L5-S1 OTHER: No other significant finding. IMPRESSION: Benign liver hemangiomas. Patient drank oral contrast which distended stomach. No stomach lesions are suspected. No CT eviden ce of bowel obstruction. TECHNICAL DOCUMENTATION: JOB ID: [id number] Quality ID # [id number]: Final reports with documentation of one or more dose reduction techniques (e.g., Au tomated exposure control, adjustment of the mA and/or kV according to patient size, use of iterative reconstruction technique) 2010 [employer]- All Rights Reserved
[2017-07-05] MEDS: RAMIPRIL 2.5 MG CAPSULE PO SCH (11:49)
[2017-07-05] MEDS: MORPHINE SULFATE 10 MG/ML INJ IV PRN (13:26)
--- NOTE | 2017-07-05 16:34 | PDOC PROGRESS REPORT ---
Subjective Progress Note for:: 07/05/17 Subjective:: She was seen by the bedside she has a history of dyslipidemia continues to complain of chest pain Physical Exam Vital Signs: Temp Pulse Resp BP Pulse Ox 97.6 F 74 18 110/63 94 07/05/17 15:05 07/05/17 15:18 07/05/17 15:05 07/05/17 15:05 07/05/17 15:05 Intake & Output 07/04/17 07/05/17 07/06/17 06:59 06:59 06:59 Intake Total 3 1041 962 Balance 3 1041 962 Weight 75 kg General appearance: PRESENT: no acute distress Eye exam: PRESENT: PERRLA Respiratory exam: PRESENT: clear to auscultation fareed Cardiovascular exam: PRESENT: +S1, +S2 GI/Abdominal exam: PRESENT: soft Neurological exam: PRESENT: alert Results Laboratory Results: 07/05/17 05:31 07/05/17 05:31 07/05/17 07/05/17 05:31 05:31 WBC 5.3 RBC 4.58 Hgb 14.0 Hct 41.0 MCV 90 MCH 30.6 MCHC 34.2 RDW 14.0 Plt Count 306 Seg Neutrophils % 44.3 Lymphocytes % 32.4 Monocytes % 15.8 H Eosinophils % 6.9 H Basophils % 0.6 Absolute Neutrophils 2.4 Absolute Lymphocytes 1.7 Absolute Monocytes 0.8 Absolute Eosinophils 0.4 Absolute Basophils 0.0 Sodium 136.5 L Potassium 4.4 Chloride 104 Carbon Dioxide 23 Anion Gap 10 BUN 23 H Creatinine 0.86 Est GFR ( Amer) > 60 Est GFR (Non-Af Amer) > 60 Glucose 95 Calcium 9.1 Total Bilirubin 0.4 AST 17 ALT 25 Alkaline Phosphatase 68 Total Protein 6.7 Albumin 4.0 07/04/17 07/04/17 07/05/17 01:55 05:40 12:31 CK-MB (CK-2) 1.90 Troponin I 0.058 0.062 0.042 Impressions: Chest X-Ray 07/03/17 22:38 IMPRESSION: NO ACUTE RADIOGRAPHIC FINDING IN THE CHEST. Abdomen Ultrasound 07/04/17 00:00 IMPRESSION: There are multiple slightly hyperechoic lesions in the liver. They do not appear to be echogenic to the degree that a hemangioma might be. These certainly could represent metastatic neoplasm. Neoplasms that can produce hyperechoic metastases included colon, or renal cell, choriocarcinoma, carcinoid, pancreatic islet cell tumors. Chest/Abdomen CTA 07/04/17 00:00 IMPRESSION: Bibasilar bandlike atelectasis No CT evidence of acute pulmonary emboli or thoracic aortic dissection Abnormal gastric fundal wall thickening with liver lesions, findings are worrisome for malignancy. Consider follow-up CT abdomen pelvis with oral and IV contrast Abdomen/Pelvis CT 07/05/17 10:30 IMPRESSION: Benign liver hemangiomas. Patient drank oral contrast which distended stomach. No stomach lesions are suspected. No CT evidence of bowel obstruction. Assessment & Plan - Diagnosis (1) Chest pain Qualifiers: Chest pain type: unspecified Qualified Code(s): R07.9 - Chest pain, unspecified Is this a current diagnosis for this admission?: Yes (2) Chronic pain syndrome Is this a current diagnosis for this admission?: Yes (3) Coronary artery disease Qualifiers: Coronary Disease-Associated Artery/Lesion type: unspecified vessel or lesion type Associated angina: angina presence unspecified Is this a current diagnosis for this admission?: Yes (4) Depression Qualifiers: Depression Type: major depressive disorder Is this a current diagnosis for this admission?: Yes (5) Dyslipidemia Is this a current diagnosis for this admission?: Yes (6) Dysthymia (or depressive neurosis) Is this a current diagnosis for this admission?: Yes (7) Elevated troponin Is this a current diagnosis for this admission?: Yes
--- NOTE | 2017-07-05 17:39 | PDOC PROGRESS REPORT ---
Subjective Progress Note for:: 07/05/17 Subjective:: Patient seems to be doing better with gradual improvement. Pt is denying any chest arm or neck discomfort. Patient denying any PND, orthopnea. Patient denied any sustained palpitations, dizziness, syncope, near syncope. Patient denying any fever chills. Patient denying any other significant discomfort. Patient is maintaining sinus rhythm. Ultrasound liver, CT of the abdomen and pelvis reviewed. Review of systems: Rest review of systems negative. Medications: Medications have been reviewed. Physical Exam Vital Signs: Temp Pulse Resp BP Pulse Ox 97.6 F 74 18 110/63 94 07/05/17 15:05 07/05/17 15:18 07/05/17 15:05 07/05/17 15:05 07/05/17 15:05 Intake & Output 07/04/17 07/05/17 07/06/17 06:59 06:59 06:59 Intake Total 3 1041 962 Balance 3 1041 962 Weight 75 kg Exam: GENERAL: well-nourished and in no acute distress. Alert and oriented x3 HEAD: Atraumatic, normocephalic. EYES: Pupils equal round and reactive to light, extraocular movements intact, sclera anicteric, conjunctiva are normal. ENT: TMs normal, nares patent, oropharynx clear without exudates. Moist mucous membranes. No oral ulcerations or bleeding gums noted NECK: supple without lymphadenopathy. Trachea is central. No cervical or axillary lymphadenopathy noted. Carotids are 2+, JVD WNL LUNGS: Respiration seems nonlabored, no significant accessory muscle action noted. Breath sounds clear to auscultation bilaterally and equal noted. No wheezes rales or rhonchi noted. No significant dullness noted on percussion. CHEST: Palpation of the chest wall shows left sided significant chest wall tenderness. No other significant abnormalities noted. HEART: Sidney HOOK UP, No PSH, 1/6 PHUONG aortic area, 1/6 yoder systolic murmur mitral area, no rubs, no gallops. ABDOMEN: Soft, no significant tenderness appreciated, normoactive bowel sounds. No guarding, no rebound. No rigidity noted . No masses appreciated. EXTREMITIES: Pedal pulses are 1-2+, no calf tenderness noted. No clubbing or cyanosis.trace to 1+ pedal edema noted NEUROLOGICAL: Focused neurological exam showed no significant neurologic deficit. Normal speech, no focal weakness appreciated. PSYCH: Normal mood, normal affect. Judgment and insight within normal limits. SKIN: No significant ecchymosis, rash, ulcerations or signs of pruritus noted. MUSCULOSKELETAL EXAM: No significant joint swelling noted. Results Laboratory Results: 07/05/17 05:31 07/05/17 05:31 07/05/17 07/05/17 05:31 05:31 WBC 5.3 RBC 4.58 Hgb 14.0 Hct 41.0 MCV 90 MCH 30.6 MCHC 34.2 RDW 14.0 Plt Count 306 Seg Neutrophils % 44.3 Lymphocytes % 32.4 Monocytes % 15.8 H Eosinophils % 6.9 H Basophils % 0.6 Absolute Neutrophils 2.4 Absolute Lymphocytes 1.7 Absolute Monocytes 0.8 Absolute Eosinophils 0.4 Absolute Basophils 0.0 Sodium 136.5 L Potassium 4.4 Chloride 104 Carbon Dioxide 23 Anion Gap 10 BUN 23 H Creatinine 0.86 Est GFR ( Amer) > 60 Est GFR (Non-Af Amer) > 60 Glucose 95 Calcium 9.1 Total Bilirubin 0.4 AST 17 ALT 25 Alkaline Phosphatase 68 Total Protein 6.7 Albumin 4.0 07/04/17 07/04/17 07/05/17 01:55 05:40 12:31 CK-MB (CK-2) 1.90 Troponin I 0.058 0.062 0.042 Impressions: Chest X-Ray 07/03/17 22:38 IMPRESSION: NO ACUTE RADIOGRAPHIC FINDING IN THE CHEST. Abdomen Ultrasound 07/04/17 00:00 IMPRESSION: There are multiple slightly hyperechoic lesions in the liver. They do not appear to be echogenic to the degree that a hemangioma might be. These certainly could represent metastatic neoplasm. Neoplasms that can produce hyperechoic metastases included colon, or renal cell, choriocarcinoma, carcinoid, pancreatic islet cell tumors. Chest/Abdomen CTA 07/04/17 00:00 IMPRESSION: Bibasilar bandlike atelectasis No CT evidence of acute pulmonary emboli or thoracic aortic dissection Abnormal gastric fundal wall thickening with liver lesions, findings are worrisome for malignancy. Consider follow-up CT abdomen pelvis with oral and IV contrast Abdomen/Pelvis CT 07/05/17 10:30 IMPRESSION: Benign liver hemangiomas. Patient drank oral contrast which distended stomach. No stomach lesions are suspected. No CT evidence of bowel obstruction. Assessment & Plan - Diagnosis (1) Chest pain Qualifiers: Chest pain type: unspecified Qualified Code(s): R07.9 - Chest pain, unspecified Is this a current diagnosis for this admission?: Yes (2) Coronary artery disease Qualifiers: Coronary Disease-Associated Artery/Lesion type: unspecified vessel or lesion type Associated angina: angina presence unspecified Is this a current diagnosis for this admission?: Yes (3) Dyslipidemia Is this a current diagnosis for this admission?: Yes (4) Fibromyalgia Is this a current diagnosis for this admission?: Yes (5) Dysthymia (or depressive neurosis) Is this a current diagnosis for this admission?: Yes (6) Elevated troponin Is this a current diagnosis for this admission?: Yes (7) Hypertension Qualifiers: Hypertension type: essential hypertension Qualified Code(s): I10 - Essential (primary) hypertension Is this a current diagnosis for this admission?: Yes - Notes Notes: Chest pain: There are multiple differential diagnosis. A recent stress test was noted to be negative. Patient's troponin I is in the indeterminate range. EKG shows minor nonspecific T inversion. CTA showed only minor coronary calcification. Ultrasound of gallbladder, liver, abdominal CT suggest hemangioma. In fact this was scheduled as an outpatient with performed on July 22 or at [facility]. Coronary artery disease: Previous cath report shows approximately 30% LAD narrowing in the mid segment. Dyslipidemia: Patient has significant dyslipidemia which can cause endothelial dysfunction. Have placed patient on Lipitor 40 mg p.o. nightly. LDL extremely high therefore may need PCSK9 inhibitor therapy and may need to be qualified for that. Hypertension: Patient on verapamil and also metoprolol. Will add SHRADDHA inhibitor to the regimen. Dysthymia: Patient has depressive neurosis. There is a lot of psychological overlay. Patient noted to have dysthymia. Continue Cymbalta may consider increasing the dose. Elevated troponin I: In the indeterminate range possibly felt to be related to severe hypertension on presentation. Doubt ACS but in the differential diagnosis. - Time Time with patient: Greater than 35 minutes - CODE STATUS was discussed, patient remains full code. Surrogate decision-maker unchanged. Multiple medical problems were addressed. More than 50% of the time spent coordinating care, discussing management plans with involved caregivers. Management plans discussed with involved personnels. Medical decision making was of moderate to high complexity, patient's has multiple comorbidities.
[2017-07-05] MEDS: ISOSORBIDE MONONITRATE 30 MG TAB.ER.24H PO SCH (19:24)
[2017-07-05] MEDS: ZOLPIDEM TARTRATE 5 MG TABLET PO SCH (22:05)
[2017-07-05] MEDS: ATORVASTATIN CALCIUM 40 MG TABLET PO SCH (22:08)
[2017-07-06] MEDS: MORPHINE SULFATE 10 MG/ML INJ IV PRN ×3 (01:19→13:29)
[2017-07-06] MEDS: ALPRAZOLAM 0.5 MG TABLET PO PRN ×3 (01:20→18:31)
[2017-07-06] MEDS: HYDROCODONE/ACETAMINOPHEN 10-325 MG TABLET PO PRN ×2 (03:56→12:04)
--- NOTE | 2017-07-06 08:09 | EKG REPORT ---
SEVERITY:- ABNORMAL ECG - SINUS RHYTHM FIRST DEGREE AV BLOCK : Confirmed by: Socrates Nieto MD 06-Jul-2017 08:08:35
[2017-07-06] MEDS: METOPROLOL TARTRATE 50 MG TABLET PO SCH (08:36)
[2017-07-06] MEDS ORDERED: DULOXETINE HCL 30 MG CAPSULE.DR PO SCH (10:00)
[2017-07-06] MEDS: ISOSORBIDE MONONITRATE 30 MG TAB.ER.24H PO SCH (12:04)
[2017-07-06] MEDS: AMLODIPINE BESYLATE 5 MG TABLET PO SCH (12:05)
[2017-07-06] MEDS: RAMIPRIL 2.5 MG CAPSULE PO SCH (12:07)
[2017-07-06 12:55] LABS: ABSOLUTE EOSINOPHILS # (AUTO) 0.4 10^3/uL (0.0-0.6); ABSOLUTE LYMPHOCYTES (AUTO) 1.5 10^3/uL (0.5-4.7); ABSOLUTE MONOCYTES (AUTO) 0.8 10^3/uL (0.1-1.4); ABSOLUTE NEUT (AUTO) 4.1 10^3/uL (1.7-8.2); BASOPHILS % (AUTO) 0.5 % (0-2); EOSINOPHILS % (AUTO) 5.4 % (0-6); HEMATOCRIT 41.2 % (36.0-47.0); HEMOGLOBIN 13.8 g/dL (12.0-15.5); HGB HCT DIFFERENCE 0.2; LYMPHOCYTES % (AUTO) 21.5 % (13-45); MEAN CORPUSCULAR HEMOGLOBIN 30.4 pg (27.0-33.4); MEAN CORPUSCULAR HGB CONC 33.6 g/dL (32.0-36.0); MEAN CORPUSCULAR VOLUME 90 fl (80-97); MONOCYTES % (AUTO) 11.9 % (3-13); RED BLOOD COUNT 4.56 10^6/uL (3.72-5.28); RED CELL DISTRIBUTION WIDTH 13.9 % (11.5-14.0); SEGMENTED NEUTROPHILS % (AUTO) 60.7 % (42-78); WHITE BLOOD COUNT 6.8 10^3/uL (4.0-10.5)
[2017-07-06 13:09] LABS: ANION GAP 9 (5-19); BLOOD UREA NITROGEN 17 mg/dL (7-20); CALCIUM 9.4 mg/dL (8.4-10.2); CARBON DIOXIDE 30 mmol/L (22-30); CHLORIDE 100 mmol/L (98-107); CREATININE RESULT 0.82 mg/dL (0.52-1.25); GLUCOSE 86 mg/dL (75-110); MAGNESIUM 2.1 mg/dL (1.6-2.3); POTASSIUM 4.8 mmol/L (3.6-5.0); SODIUM 138.9 mmol/L (137-145)
[2017-07-06] MEDS: ONDANSETRON HCL INJ/PF 4 MG/2 ML SDV IV PRN (13:29)
--- NOTE | 2017-07-06 16:15 | PDOC PROGRESS REPORT ---
Subjective Progress Note for:: 07/06/17 Subjective:: She was seen by the bedside she has a history of dyslipidemia continues to complain of chest pain Physical Exam Vital Signs: Temp Pulse Resp BP Pulse Ox 97.6 F 65 18 96/51 L 93 07/06/17 14:52 07/06/17 14:52 07/06/17 14:52 07/06/17 14:52 07/06/17 14:52 Intake & Output 07/05/17 07/06/17 07/07/17 06:59 06:59 06:59 Intake Total 1041 2128 118 Balance 1041 2128 118 General appearance: PRESENT: no acute distress, well-developed, well-nourished Head exam: PRESENT: atraumatic, normocephalic Eye exam: PRESENT: conjunctiva pink, EOMI, PERRLA Ear exam: PRESENT: normal external ear exam Mouth exam: PRESENT: moist, tongue midline Neck exam: PRESENT: full ROM Respiratory exam: PRESENT: clear to auscultation fareed Cardiovascular exam: PRESENT: RRR, +S1, +S2 Pulses: PRESENT: normal dorsalis pedis pul, +2 pedal pulses bilateral Vascular exam: PRESENT: normal capillary refill GI/Abdominal exam: PRESENT: normal bowel sounds, soft Rectal exam: PRESENT: deferred Neurological exam: PRESENT: alert Psychiatric exam: PRESENT: appropriate affect, normal mood Skin exam: PRESENT: dry, intact, warm. ABSENT: cyanosis, rash Results Laboratory Results: 07/06/17 12:15 07/06/17 12:15 07/06/17 07/06/17 12:15 12:15 WBC 6.8 RBC 4.56 Hgb 13.8 Hct 41.2 MCV 90 MCH 30.4 MCHC 33.6 RDW 13.9 Plt Count 332 Seg Neutrophils % 60.7 Lymphocytes % 21.5 Monocytes % 11.9 Eosinophils % 5.4 Basophils % 0.5 Absolute Neutrophils 4.1 Absolute Lymphocytes 1.5 Absolute Monocytes 0.8 Absolute Eosinophils 0.4 Absolute Basophils 0.0 Sodium 138.9 Potassium 4.8 Chloride 100 Carbon Dioxide 30 Anion Gap 9 BUN 17 Creatinine 0.82 Est GFR ( Amer) > 60 Est GFR (Non-Af Amer) > 60 Glucose 86 Calcium 9.4 Magnesium 2.1 07/04/17 07/04/17 07/05/17 01:55 05:40 12:31 CK-MB (CK-2) 1.90 Troponin I 0.058 0.062 0.042 07/06/17 12:15 CK-MB (CK-2) Troponin I 0.059 Impressions: Chest X-Ray 07/03/17 22:38 IMPRESSION: NO ACUTE RADIOGRAPHIC FINDING IN THE CHEST. Abdomen Ultrasound 07/04/17 00:00 IMPRESSION: There are multiple slightly hyperechoic lesions in the liver. They do not appear to be echogenic to the degree that a hemangioma might be. These certainly could represent metastatic neoplasm. Neoplasms that can produce hyperechoic metastases included colon, or renal cell, choriocarcinoma, carcinoid, pancreatic islet cell tumors. Chest/Abdomen CTA 07/04/17 00:00 IMPRESSION: Bibasilar bandlike atelectasis No CT evidence of acute pulmonary emboli or thoracic aortic dissection Abnormal gastric fundal wall thickening with liver lesions, findings are worrisome for malignancy. Consider follow-up CT abdomen pelvis with oral and IV contrast Abdomen/Pelvis CT 07/05/17 10:30 IMPRESSION: Benign liver hemangiomas. Patient drank oral contrast which distended stomach. No stomach lesions are suspected. No CT evidence of bowel obstruction. Assessment & Plan - Diagnosis (1) Chest pain Qualifiers: Chest pain type: unspecified Qualified Code(s): R07.9 - Chest pain, unspecified Is this a current diagnosis for this admission?: Yes (2) Chronic pain syndrome Is this a current diagnosis for this admission?: Yes (3) Coronary artery disease Qualifiers: Coronary Disease-Associated Artery/Lesion type: unspecified vessel or lesion type Associated angina: angina presence unspecified Is this a current diagnosis for this admission?: Yes (4) Depression Qualifiers: Depression Type: major depressive disorder Is this a current diagnosis for this admission?: Yes (5) Dyslipidemia Is this a current diagnosis for this admission?: Yes (6) Dysthymia (or depressive neurosis) Is this a current diagnosis for this admission?: Yes (7) Elevated troponin Is this a current diagnosis for this admission?: Yes
[2017-07-06] MEDS ORDERED: ASPIRIN 325 MG TABLET PO ONE (16:30)
[2017-07-06] MEDS ORDERED: ENOXAPARIN SODIUM INJ 80 MG/0.8 ML DISP.SYRIN SUBCUT SCH (16:45)
[2017-07-06] MEDS ORDERED: LANSOPRAZOLE 30 MG TAB.RAP.DR PO SCH (17:00)
[2017-07-06] MEDS ORDERED: ENOXAPARIN SODIUM INJ 40 MG/0.4 ML DISP.SYRIN SUBCUT SCH (17:00)
--- NOTE | 2017-07-06 17:13 | PDOC PROGRESS REPORT ---
Subjective Progress Note for:: 07/06/17 Subjective:: Patient had multiple episodes of chest pain. She tends to respond better to morphine. Cardiac enzymes show slight bump but not in the non-STEMI range. Patient denying any PND, orthopnea. Patient denied any sustained palpitations, dizziness, syncope, near syncope. Patient denying any fever chills. Patient claims significant problems with headaches. Patient also has significant neurosis symptoms. Patient complains of migraine. Patient complains of possible restless legs. Patient is maintaining sinus rhythm. Ultrasound liver, CT of the abdomen and pelvis reviewed. Patient felt to have hemangioma. Review of systems: Rest review of systems negative. Medications: Medications have been reviewed. Physical Exam Vital Signs: Temp Pulse Resp BP Pulse Ox 97.6 F 65 18 96/51 L 93 07/06/17 14:52 07/06/17 14:52 07/06/17 14:52 07/06/17 14:52 07/06/17 14:52 Intake & Output 07/05/17 07/06/17 07/07/17 06:59 06:59 06:59 Intake Total 1041 2128 118 Balance 1041 2128 118 Exam: GENERAL: well-nourished and in no acute distress. Alert and oriented x3 HEAD: Atraumatic, normocephalic. EYES: Pupils equal round and reactive to light, extraocular movements intact, sclera anicteric, conjunctiva are normal. ENT: TMs normal, nares patent, oropharynx clear without exudates. Moist mucous membranes. No oral ulcerations or bleeding gums noted NECK: supple without lymphadenopathy. Trachea is central. No cervical or axillary lymphadenopathy noted. Carotids are 2+, JVD WNL LUNGS: Respiration seems nonlabored, no significant accessory muscle action noted. Breath sounds clear to auscultation bilaterally and equal noted. No wheezes rales or rhonchi noted. No significant dullness noted on percussion. CHEST: Palpation of the chest wall shows left-sided chest wall tenderness. No other significant abnormalities noted. 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 ABDOMEN: Soft, no significant tenderness appreciated, normoactive bowel sounds. No guarding, no rebound. No rigidity noted . No masses appreciated. EXTREMITIES: Pedal pulses are 1-2+, no calf tenderness noted. No clubbing or cyanosis.trace to 1+ pedal edema noted NEUROLOGICAL: Focused neurological exam showed no significant neurologic deficit. Normal speech, no focal weakness appreciated. PSYCH: Normal mood, normal affect. Judgment and insight within normal limits. SKIN: No significant ecchymosis, rash, ulcerations or signs of pruritus noted. MUSCULOSKELETAL EXAM: No significant joint swelling noted. Results Laboratory Results: 07/06/17 12:15 07/06/17 12:15 07/06/17 07/06/17 12:15 12:15 WBC 6.8 RBC 4.56 Hgb 13.8 Hct 41.2 MCV 90 MCH 30.4 MCHC 33.6 RDW 13.9 Plt Count 332 Seg Neutrophils % 60.7 Lymphocytes % 21.5 Monocytes % 11.9 Eosinophils % 5.4 Basophils % 0.5 Absolute Neutrophils 4.1 Absolute Lymphocytes 1.5 Absolute Monocytes 0.8 Absolute Eosinophils 0.4 Absolute Basophils 0.0 Sodium 138.9 Potassium 4.8 Chloride 100 Carbon Dioxide 30 Anion Gap 9 BUN 17 Creatinine 0.82 Est GFR ( Amer) > 60 Est GFR (Non-Af Amer) > 60 Glucose 86 Calcium 9.4 Magnesium 2.1 07/04/17 07/04/17 07/05/17 01:55 05:40 12:31 CK-MB (CK-2) 1.90 Troponin I 0.058 0.062 0.042 07/06/17 12:15 CK-MB (CK-2) Troponin I 0.059 EKG Comments: EKG obtained this morning showed no significant ST-T wave changes. Impressions: Chest X-Ray 07/03/17 22:38 IMPRESSION: NO ACUTE RADIOGRAPHIC FINDING IN THE CHEST. Abdomen Ultrasound 07/04/17 00:00 IMPRESSION: There are multiple slightly hyperechoic lesions in the liver. They do not appear to be echogenic to the degree that a hemangioma might be. These certainly could represent metastatic neoplasm. Neoplasms that can produce hyperechoic metastases included colon, or renal cell, choriocarcinoma, carcinoid, pancreatic islet cell tumors. Chest/Abdomen CTA 07/04/17 00:00 IMPRESSION: Bibasilar bandlike atelectasis No CT evidence of acute pulmonary emboli or thoracic aortic dissection Abnormal gastric fundal wall thickening with liver lesions, findings are worrisome for malignancy. Consider follow-up CT abdomen pelvis with oral and IV contrast Abdomen/Pelvis CT 07/05/17 10:30 IMPRESSION: Benign liver hemangiomas. Patient drank oral contrast which distended stomach. No stomach lesions are suspected. No CT evidence of bowel obstruction. Assessment & Plan - Diagnosis (1) Chest pain Qualifiers: Chest pain type: unspecified Qualified Code(s): R07.9 - Chest pain, unspecified Is this a current diagnosis for this admission?: Yes (2) Coronary artery disease Qualifiers: Coronary Disease-Associated Artery/Lesion type: unspecified vessel or lesion type Associated angina: angina presence unspecified Is this a current diagnosis for this admission?: Yes (3) Dyslipidemia Is this a current diagnosis for this admission?: Yes (4) Fibromyalgia Is this a current diagnosis for this admission?: Yes (5) Dysthymia (or depressive neurosis) Is this a current diagnosis for this admission?: Yes (6) Elevated troponin Is this a current diagnosis for this admission?: Yes (7) Hypertension Qualifiers: Hypertension type: essential hypertension Qualified Code(s): I10 - Essential (primary) hypertension Is this a current diagnosis for this admission?: Yes - Notes Notes: Chest pain: There are multiple differential diagnosis. A recent stress test was noted to be negative. Patient's troponin I is in the indeterminate range. EKG shows minor nonspecific T inversion. CTA showed only minor coronary calcification. Ultrasound of gallbladder, liver, abdominal CT suggest hemangioma. In fact this was scheduled as an outpatient with performed on July 22 or at [facility]. Patient however keeps on having recurrent chest pain. There has been slight bump in troponin I but still not in the non-STEMI range. Believe that patient could be having unstable angina. Will optimize management and add Plavix to aspirin. Will put patient on DVT prophylaxis dose of Lovenox. I also called [facility] and put her on the list for transfer for cardiac cath but they do not have beds at this point. Coronary artery disease: Previous cath report shows approximately 30% LAD narrowing in the mid segment. Dyslipidemia: Patient has significant dyslipidemia which can cause endothelial dysfunction. Have placed patient on Lipitor 40 mg p.o. nightly. LDL extremely high therefore may need PCSK9 inhibitor therapy and may need to be qualified for that. Hypertension: Patient on Norvasc and also metoprolol. Will add SHRADDHA inhibitor ramipril to the regimen yesterday. Dysthymia: Patient has depressive neurosis. There is a lot of psychological overlay. Patient noted to have dysthymia. Continue Cymbalta may consider increasing the dose. Elevated troponin I: In the indeterminate range possibly felt to be related to severe hypertension on presentation. However today there was a slight bump in troponin I even though her blood pressure has been in the normal range. This raises suspicion of acute coronary syndrome and need for heart catheterization. Patient complains of several neuropathic type pain. Will place patient on Neurontin 300 mg p.o. twice daily to see if this will help her symptoms. Patient had side effects to Lyrica in the past. - Time Time with patient: Greater than 35 minutes - Significant time spent discussing management plans and arranging transfer to tertiary care for heart cath. Multiple medication changes were performed. CODE STATUS was discussed, patient remains full code. Surrogate decision-maker unchanged. Multiple medical problems were addressed. More than 50% of the time spent coordinating care, discussing management plans with involved caregivers. Management plans discussed with involved personnels. Medical decision making was of high complexity, patient's has multiple comorbidities. Medications reviewed and adjusted accordingly: Yes
[2017-07-06] MEDS ORDERED: GABAPENTIN 300 MG CAPSULE PO ONE (17:15)
[2017-07-06] MEDS ORDERED: CLOPIDOGREL BISULFATE 300 MG TABLET PO ONE (17:15)
[2017-07-06 18:55] VITALS: BP 117/68
[2017-07-06] MEDS ORDERED: GABAPENTIN 300 MG CAPSULE PO SCH (22:00)
[2017-07-07] MEDS ORDERED: CLOPIDOGREL BISULFATE 75 MG TABLET PO SCH (10:00)
[2017-07-07] MEDS ORDERED: ASPIRIN 81 MG TABLET, ENT COATED PO SCH (10:00)
[2017-07-07] MEDS ORDERED: ISOSORBIDE MONONITRATE 30 MG TAB.ER.24H PO SCH (10:00)
== END 2017-07-06 18:56 | disposition short-term general hospital (02) | DRG 313 ==
LOC: ER 21:20 → EH 07-04 00:38 → UNDOADMOB 07-04 00:48 → OBSVTOIN 07-04 01:48 → 3W 07-04 03:28
PROVIDERS: ADMIT Family Medicine; ATTEND Family Medicine
DX: R07.9 Chest pain, unspecified (principal); I25.110 Atherosclerotic heart disease of native coronary artery with unstable angina pectoris; D18.09 Hemangioma of other sites; E78.5 Hyperlipidemia, unspecified; M79.7 Fibromyalgia; I10 Essential (primary) hypertension; G89.4 Chronic pain syndrome; F41.1 Generalized anxiety disorder; F34.1 Dysthymic disorder; Z88.1 Allergy status to other antibiotic agents; M19.90 Unspecified osteoarthritis, unspecified site; Z79.82 Long term (current) use of aspirin; Z79.899 Other long term (current) drug therapy; Z90.710 Acquired absence of both cervix and uterus; Z87.891 Personal history of nicotine dependence
CPT/HCPCS: 36415; 71010; 71275; 74177; 76700; 80048; 80053; 80061; 82550; 82553; 83735; 84443; 84484; 85025; 93005; 93010; 96374; 99285; J1650; J2270; J2405; J3490

== ENCOUNTER 2017-08-14 14:49 | Emergency (ER) | payer BC, MEDICAID ==
[2017-08-14 15:24] LABS: ABSOLUTE EOSINOPHILS # (AUTO) 0.2 10^3/uL (0.0-0.6); ABSOLUTE LYMPHOCYTES (AUTO) 1.2 10^3/uL (0.5-4.7); ABSOLUTE MONOCYTES (AUTO) 0.5 10^3/uL (0.1-1.4); ABSOLUTE NEUT (AUTO) 2.7 10^3/uL (1.7-8.2); BASOPHILS % (AUTO) 0.9 % (0-2); EOSINOPHILS % (AUTO) 3.6 % (0-6); HEMOGLOBIN 14.1 g/dL (12.0-15.5); HGB HCT DIFFERENCE 0.3; LYMPHOCYTES % (AUTO) 25.5 % (13-45); MEAN CORPUSCULAR HEMOGLOBIN 29.3 pg (27.0-33.4); MEAN CORPUSCULAR HGB CONC 33.6 g/dL (32.0-36.0); MEAN CORPUSCULAR VOLUME 87 fl (80-97); MONOCYTES % (AUTO) 11.9 % (3-13); RED BLOOD COUNT 4.81 10^6/uL (3.72-5.28); SEGMENTED NEUTROPHILS % (AUTO) 58.1 % (42-78); WHITE BLOOD COUNT 4.6 10^3/uL (4.0-10.5)
--- NOTE | 2017-08-14 15:24 | RADIOLOGY REPORT (SQ) ---
EXAM DESCRIPTION: CHEST SINGLE VIEW COMPLETED DATE/TIME: 08/14/2017 3:07 pm REASON FOR STUDY: bed 21 cp COMPARISON: Chest films 07/04/2017, 05/13/2017 CT angio chest 07/04/2017 EXAM PARAMETERS: NUMBER OF VIEWS: One view. TECHNIQUE: Single frontal radiographic view of the chest acquired. RADIATION DOSE: NA LIMITATIONS: None. FINDINGS: LUNGS AND PLEURA: Bibasilar bandlike atelectasis. No fluffy alveolar infiltrates worrisome for edema or pneumonia. No pleural effusions. No pneumothorax. MEDIASTINUM AND HILAR STRUCTURES: No masses. Contour normal. HEART AND VASCULAR STRUCTURES: Stable moderate cardiomegaly. 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 BONES: No acute findings. HARDWARE: None in the chest. OTHER: No other significant finding. IMPRESSION: Bibasilar bandlike atelectasis TECHNICAL DOCUMENTATION: JOB ID: [id number]
[2017-08-14 15:42] LABS: ALANINE AMINOTRANSFERASE 30 U/L (9-52); ALBUMIN 4.2 g/dL (3.5-5.0); ALKALINE PHOSPHATASE 109 U/L (38-126); ANION GAP 12 (5-19); ASPARTATE AMINO TRANSFERASE 27 U/L (14-36); BILIRUBIN,DIRECT 0.3 mg/dL (0.0-0.4); BILIRUBIN,TOTAL 0.6 mg/dL (0.2-1.3); BLOOD UREA NITROGEN 10 mg/dL (7-20); CALCIUM 9.6 mg/dL (8.4-10.2); CARBON DIOXIDE 25 mmol/L (22-30); CHLORIDE 104 mmol/L (98-107); CREATINE KINASE 44 U/L (30-135); CREATININE RESULT 0.66 mg/dL (0.52-1.25); GLUCOSE 99 mg/dL (75-110); POTASSIUM 4.5 mmol/L (3.6-5.0); SODIUM 140.6 mmol/L (137-145); TOTAL PROTEIN 6.9 g/dL (6.3-8.2)
--- NOTE | 2017-08-14 15:44 | ER Document Report ---
ED General - General Chief Complaint: Palpitations Stated Complaint: HEART RATE PROBLEM Time Seen by Provider: 08/14/17 15:28 Notes: 61-year-old female with multiple medical problems including recent cardiac bypass July 10, 2017, chronic pain syndrome with migraines fibromyalgia, depression. She presents after having nausea which is not unusual for her earlier in the day after eating a bologna sandwich and felt like all of the blood had rushed out of her then developed rapid palpitations as she was noting increasing blood pressure. She reports her heart rate got up to the 120s. Reviewing records she did have her metoprolol changed from metoprolol tartrate to metoprolol succinate. She did have an evaluation yesterday with records showing that she had been complaining of more fatigue than she normally has as well as a bad taste in her mouth. She had been referred to ENT as this has been going on for little bit now. Denies any other new medications. She has had nausea but this is not unusual and seem to have improved with the Zofran she received on the way to the emergency department. When she noticed her heart beating faster and pounding she did not note any irregularity to it. She has generalized pain but states this is not unusual for her due to her fibromyalgia. She has no specific abdominal or chest pain. She has had a little diarrhea but has not had any today. Denies fever new cough or cold symptoms. Current PCP is Dr. Arteaga that she has seen just a few times she reports. History is slight limited as patient states she does have a hard time remembering things. She was unsure of how many vessels she had bypass. She did report complications apparently during surgery where she had to be "opened up 3 times". She has not had a chance to talk with her surgeon since she reports. TRAVEL OUTSIDE OF THE [place] IN LAST 30 DAYS: No - Related Data Allergies/Adverse Reactions: cefaclor [From Ceclor] Allergy (Verified 08/14/17 15:12) nitrofurantoin [From Macrobid] Allergy (Verified 08/14/17 15:21) Sulfa (Sulfonamide Antibiotics) Allergy (Verified 08/14/17 15:12) Past Medical History - Social History Smoking Status: Never Smoker Frequency of alcohol use: None Drug Abuse: None Family History: Reviewed & Not Pertinent - Past Medical History Cardiac Medical History: Reports: Hx Coronary Artery Disease Neurological Medical History: Reports: Hx Migraine Renal/ Medical History: Denies: Hx Peritoneal Dialysis Musculoskeltal Medical History: Reports Hx Arthritis, Reports Hx Fibromyalgia Psychiatric Medical History: Reports: Hx Depression Past Surgical History: Reports: Hx Breast Surgery, Hx Cardiac Surgery - Bipass x4, Hx Hysterectomy, Hx Orthopedic Surgery - Immunizations Hx Diphtheria, Pertussis, Tetanus Vaccination: Yes Review of Systems - Review of Systems -: Yes All other systems reviewed and negative Physical Exam - Vital signs Vitals: Pulse Ox 96 08/14/17 15:00 Notes: Monitor shows normal sinus rhythm rate 80s - Notes Notes: Physical Exam: GENERAL: VS as per nursing doc. Well-appearing, well-nourished and in no acute distress. HEAD: Atraumatic, normocephalic. EYES: Pupils equal round and reactive to light, extraocular movements intact, sclera anicteric, no conjunctival injection or discharge. ENT: Nares patent, oropharynx clear without exudates. Moist mucous membranes. Hard of hearing NECK: Normal range of motion, supple without lymphadenopathy. No JVD. No Carotid Bruits. LUNGS: Breath sounds clear to auscultation bilaterally and equal. No wheezes rales or rhonchi. HEART: Normal S1S2. Regular rate and rhythm without murmurs. Equal peripheral pulses. ABDOMEN: Soft, non-tender. EXTREMITIES: Normal range of motion. No calf tenderness. Negative Homans. No unilateral edema. NEUROLOGICAL: Cranial nerves grossly intact. Normal speech. Normal sensory and motor exams. No gross cerebellar abnormalities. PSYCH: Normal mood, normal affect. SKIN: Warm, dry, no cyanosis, no splinter hemorrhages. Cap refill < 2 sec. well- healing midline sternotomy incision Course - Re-evaluation Re-evalutation: 08/14/17 16:57 Troponin is still pending. 08/14/17 17:39 I reviewed the patient's prior hospitalization and records. Discussed with her confirmed that. She has been extremely anxious here. I discussed differential with her. She has been observed there is no atrial fibrillation that she has had here. She has been extremely anxious as discussed and would like to go home. She complains of her generalized pain secondary to her fibromyalgia and would like an medication dose prior to leaving. She understands follow-up needs and has close follow-up scheduled. Initial troponin 0 0.013. She understands warning signs to watch for. I do not see any signs of pericarditis or other postop complication. - Vital Signs Vital signs: Temp Pulse Resp BP Pulse Ox 97.9 F 21 H 153/94 H 95 08/14/17 15:01 08/14/17 17:01 08/14/17 17:01 08/14/17 17:01 - Laboratory Result Diagrams: 08/14/17 15:05 08/14/17 15:05 Laboratory results interpreted by me: 08/14/17 15:05 RDW 15.0 H - Diagnostic Test Radiology reviewed: Image reviewed, Reports reviewed - EKG Interpretation by Me EKG shows normal: Sinus rhythm - Normal sinus rhythm, rate 97, there are T-wave inversions appear laterally which are new from prior to her surgery July 06. No evidence of injury current. QRS abnormal duration. Possible left atrial enlargement Discharge - Discharge Clinical Impression: Palpitations Condition: Good Disposition: HOME, SELF-CARE Referrals: ADILENE ARTEAGA MD [Primary Care Provider] - Follow up tomorrow
[2017-08-14 15:54] LABS: CREATINE KINASE MB 1.05 ng/mL (<4.55); TROPONIN I 0.013 ng/mL
[2017-08-14] MEDS ORDERED: HYDROCODONE/ACETAMINOPHEN 10-325 MG TABLET PO ONE (17:38)
[2017-08-14 17:46] VITALS: BP 141/95
--- NOTE | 2017-08-14 20:19 | EKG REPORT ---
SEVERITY:- ABNORMAL ECG - SINUS RHYTHM PROBABLE LEFT ATRIAL ABNORMALITY NONSPECIFIC T ABNORMALITIES, ANT-LAT LEADS : Confirmed by: Robert Harrell 14-Aug-2017 20:19:22
== END 2017-08-14 17:58 | disposition home or self-care (01) ==
LOC: ER 14:49
DX: R00.2 Palpitations (principal); R11.0 Nausea; R53.83 Other fatigue; Z88.3 Allergy status to other anti-infective agents; Z88.2 Allergy status to sulfonamides; Z95.1 Presence of aortocoronary bypass graft; Z90.710 Acquired absence of both cervix and uterus
CPT/HCPCS: 36415; 71010; 80053; 82550; 82553; 83735; 84484; 85025; 93005; 93010; 99285

== ENCOUNTER → 2017-12-30 | Outpatient (CLI) | payer BC, MEDICAID ==
--- NOTE | 2017-12-30 17:13 | RADIOLOGY REPORT (SQ) ---
EXAM DESCRIPTION: CHEST PA/LATERAL COMPLETED DATE/TIME: 12/30/2017 5:03 pm REASON FOR STUDY: COUGH R05 COUGH COMPARISON: None. NUMBER OF VIEWS: Two view. TECHNIQUE: Frontal and lateral radiographic views of the chest acquired. LIMITATIONS: None. FINDINGS: LUNGS AND PLEURA: No opacities, masses or pneumothorax. No pleural effusion. MEDIASTINUM AND HILAR STRUCTURES: Grossly stable contours. Status post CABG. HEART AND VASCULAR STRUCTURES: Heart enlarged without failure. Aorta normal for age. BONES: Osteopenic. No gross fracture. HARDWARE: None in the chest. OTHER: No other significant finding. IMPRESSION: CARDIAC ENLARGEMENT WITHOUT FAILURE. TECHNICAL DOCUMENTATION: JOB ID: [id number] [employer]- All Rights Reserved
== END ==
LOC: OD 16:36
PROVIDERS: ATTEND Family Medicine
DX: R05 Cough (principal)
CPT/HCPCS: 71046

== ENCOUNTER → 2018-01-02 | Outpatient (CLI) | payer BC, MEDICAID ==
--- NOTE | 2018-01-02 18:40 | RADIOLOGY REPORT (SQ) ---
EXAM DESCRIPTION: CHEST PA/LAT COMPLETED DATE/TIME: 01/02/2018 6:25 pm REASON FOR STUDY: SHORTNESS OF BREATH COMPARISON: 05/13/2017. EXAM PARAMETERS: NUMBER OF VIEWS: two views TECHNIQUE: Digital Frontal and Lateral radiographic views of the chest acquired. RADIATION DOSE: NA LIMITATIONS: none FINDINGS: LUNGS AND PLEURA: Streaky density in the left lung base, best visualized on the lateral vi ew. Right lung clear. No pleural effusion. No pneumothorax. MEDIASTINUM AND HILAR STRUCTURES: No masses or contour abnormalities. HEART AND VASCULAR STRUCTURES: Heart normal size. No evidence for failure. BONES: No acute findings. HARDWARE: Sternotomy wires and coronary bypass markers. OTHER: No other significant finding. IMPRESSION: STREAKY DENSITY IN THE LEFT LUNG BASE, ATELECTASIS VERSUS EARLY INFILTRATE. TECHNICAL DOCUMENTATION: JOB ID: [id number] [employer]- All Rights Reserved
[2018-01-02 19:42] LABS: ANION GAP 10 (5-19); BLOOD UREA NITROGEN 13 mg/dL (7-20); CALCIUM 10.5 mg/dL (8.4-10.2); CARBON DIOXIDE 29 mmol/L (22-30); CHLORIDE 100 mmol/L (98-107); GLUCOSE 81 mg/dL (75-110); POTASSIUM 4.5 mmol/L (3.6-5.0); SODIUM 138.5 mmol/L (137-145)
== END ==
LOC: OD 17:40
PROVIDERS: ATTEND Family Medicine
DX: R06.02 Shortness of breath (principal); J98.4 Other disorders of lung
CPT/HCPCS: 36415; 71046; 80048; 83880; 85379

== ENCOUNTER → 2018-07-27 | Outpatient (CLI) | payer BC, MEDICAID ==
--- NOTE | 2018-08-07 15:57 | WOMENS IMAGING REPORT ---
EXAM DESCRIPTION: BILAT SCREENING MAMMO W/CAD COMPLETED DATE/TIME: 07/27/2018 2:07 pm REASON FOR STUDY: BILATERAL SCREENING MAMMO/Z12.31Z12.31 ENCNTR SCREEN MAMMOGRAM FOR MALIGNANT NEOP LASM OF OBINNA COMPARISON: 02/20/2017 and 02/12/2016. TECHNIQUE: Standard craniocaudal and mediolateral oblique views of each breast recorded using digita l acquisition. LIMITATIONS: None. FINDINGS: RIGHT BREAST MASSES: No suspicious masses. CALCIFICATIONS: No new or suspicious calcifications. ARCHITECTURAL DISTORTION: None. DEVELOPING DENSITY: None. ASYMMETRY: None noted. OTHER: No other significant findings. LEFT BREAST MASSES: New small round circumscribed mass in the upper-outer breast. CALCIFICATIONS: No new or suspicious calcifications. ARCHITECTURAL DISTORTION: None. DEVELOPING DENSITY: None. ASYMMETRY: None noted. OTHER: No other significant findings. Read with the assistance of CAD. .[facility] - R2 Cenova Version 1.3 .[facility] Imaging - R2 Cenova Version 1.3 .[facility] - R2 Cenova Version 2.4 .[facility] - R2 Cenova Version 2.4 .[facility] - R2 [employer] Developer Version 9.2 IMPRESSION: New small round circumscribed mass in the upper-outer left breast. Stable mammographic appearance of the right breast. BREAST DENSITY: b. There are scattered areas of fibroglandular density. BIRAD: 0 Incomplete: Needs Additional Imaging Evaluation and/or prior Mammograms for Comparison. RECOMMENDATION: RECOMMENDED FOLLOW-UP: Recommend additional evaluation with ultrasound of the left b reast. Recommend routine screening mammography of the right breast. The patient will be contacted for additional imaging. COMMENT: The patient has been notified of the results by letter per [place] requirements. Additional no tification policies are in place for contacting patient with suspicious or incomplete findings. Quality ID #[id number]: The [employer] recommends an annual screening mammogram for women aged 40 years or over. This facility utilizes a reminder system to ensure that all patients receive reminder letters, and/or direct phone calls for appointments. This includes reminders for routine scr eening mammograms, diagnostic mammograms, or other Breast Imaging Interventions when appropriate. Th is patient will be placed in the appropriate reminder system. The [employer] (ACR) has developed recommendations for screening MRI of the breast s in certain patient populations, to be used in conjunction with mammography. Breast MRI surveillanc e may be appropriate for women with more than 20% lifetime risk of developing breast cancer as deter mined by genetic testing, significant family history of the disease, or history of mantle radiation f or Hodgkins Disease. ACR Practice Guidelines 2008. TECHNICAL DOCUMENTATION: FINDING NUMBER: (1) ASSESSMENT: (1) JOB ID: [id number] [employer]- All Rights Reserved Reading location - IP/workstation name: [facility]
== END ==
LOC: WI 13:33
PROVIDERS: ATTEND Physician Assistant
DX: Z12.31 Encounter for screening mammogram for malignant neoplasm of breast (principal); N63.21 Unspecified lump in the left breast, upper outer quadrant
CPT/HCPCS: 77067

== ENCOUNTER 2018-08-30 17:36 | Emergency (ER) | payer BC, MEDICAID ==
[2018-08-30 17:52] VITALS: BP 104/67
--- NOTE | 2018-08-30 19:56 | ER Document Report ---
ED Medical Screen (RME) - General Chief Complaint: Palpitations Stated Complaint: HEART PROBLEMS Time Seen by Provider: 08/30/18 19:54 Mode of Arrival: Wheelchair Information source: Patient Notes: 62-year-old female presenting to the emergency room with left lower extremity pain and swelling, palpitations (fluttering in her chest). Patient denies chest pain or shortness of breath. TRAVEL OUTSIDE OF THE [place] IN LAST 30 DAYS: No - Related Data Allergies/Adverse Reactions: cefaclor [From Ceclor] Allergy (Verified 08/30/18 17:37) nitrofurantoin [From Macrobid] Allergy (Verified 08/30/18 17:37) Sulfa (Sulfonamide Antibiotics) Allergy (Verified 08/30/18 17:37) Past Medical History - Past Medical History Cardiac Medical History: Reports: Hx Coronary Artery Disease Neurological Medical History: Reports: Hx Migraine Renal/ Medical History: Denies: Hx Peritoneal Dialysis Musculoskeltal Medical History: Reports Hx Arthritis, Reports Hx Fibromyalgia Psychiatric Medical History: Reports: Hx Depression Past Surgical History: Reports: Hx Breast Surgery, Hx Cardiac Surgery - Bipass x4, Hx Hysterectomy, Hx Orthopedic Surgery - Immunizations Hx Diphtheria, Pertussis, Tetanus Vaccination: Yes Physical Exam - Vital signs Vitals: Temp Pulse Resp BP Pulse Ox 97.7 F 68 16 104/67 95 08/30/18 17:50 08/30/18 17:50 08/30/18 17:50 08/30/18 17:50 08/30/18 17:50 Course - Vital Signs Vital signs: Temp Pulse Resp BP Pulse Ox 97.7 F 68 16 104/67 95 08/30/18 17:50 08/30/18 17:50 08/30/18 17:50 08/30/18 17:50 08/30/18 17:50 Doctor's Discharge - Discharge Referrals: ZAC LOZA PA [Primary Care Provider] - Follow up as needed
[2018-08-30 20:22] LABS: ABSOLUTE EOSINOPHILS # (AUTO) 0.2 10^3/uL (0.0-0.6); ABSOLUTE LYMPHOCYTES (AUTO) 1.5 10^3/uL (0.5-4.7); ABSOLUTE MONOCYTES (AUTO) 0.8 10^3/uL (0.1-1.4); BASOPHILS % (AUTO) 0.7 % (0-2); EOSINOPHILS % (AUTO) 4.2 % (0-6); HEMATOCRIT 42.1 % (36.0-47.0); HEMOGLOBIN 14.4 g/dL (12.0-15.5); LYMPHOCYTES % (AUTO) 26.3 % (13-45); MEAN CORPUSCULAR HEMOGLOBIN 31.2 pg (27.0-33.4); MEAN CORPUSCULAR HGB CONC 34.3 g/dL (32.0-36.0); MEAN CORPUSCULAR VOLUME 91 fl (80-97); MONOCYTES % (AUTO) 14.5 % (3-13); PLATELET COUNT 414 10^3/uL (150-450); RED BLOOD COUNT 4.63 10^6/uL (3.72-5.28); RED CELL DISTRIBUTION WIDTH 13.9 % (11.5-14.0); SEGMENTED NEUTROPHILS % (AUTO) 54.3 % (42-78); TOTAL CELLS COUNTED % (AUTO) 100 %; WHITE BLOOD COUNT 5.6 10^3/uL (4.0-10.5)
[2018-08-30 20:44] LABS: ALANINE AMINOTRANSFERASE 35 U/L (9-52); ALBUMIN 4.3 g/dL (3.5-5.0); ALKALINE PHOSPHATASE 83 U/L (38-126); ANION GAP 9 (5-19); ASPARTATE AMINO TRANSFERASE 27 U/L (14-36); BILIRUBIN,DIRECT 0.2 mg/dL (0.0-0.4); BILIRUBIN,TOTAL 0.3 mg/dL (0.2-1.3); BLOOD UREA NITROGEN 15 mg/dL (7-20); CALCIUM 9.5 mg/dL (8.4-10.2); CARBON DIOXIDE 28 mmol/L (22-30); CHLORIDE 103 mmol/L (98-107); GLUCOSE 90 mg/dL (75-110); POTASSIUM 4.3 mmol/L (3.6-5.0); SODIUM 140.2 mmol/L (137-145)
--- NOTE | 2018-08-30 21:08 | EKG REPORT ---
SEVERITY:- BORDERLINE ECG - SINUS RHYTHM PROBABLE LEFT ATRIAL ABNORMALITY : Confirmed by: Gely Brewer MD 30-Aug-2018 21:07:42
[2018-08-30] MEDS ORDERED: FUROSEMIDE 20 MG TABLET PO ONE (22:41)
--- NOTE | 2018-08-30 22:45 | ER Document Report ---
ED General - General Chief Complaint: Palpitations Stated Complaint: HEART PROBLEMS Time Seen by Provider: 08/30/18 19:54 Mode of Arrival: Wheelchair Notes: Patient is a 8-year-old female with a history of a crush injury to her left foot. Because this injury her foot is chronic pain. She says the pain is been worsening and tonight became much worse to the point where the pain was so bad it was causing her to have palpitations and feel unwell. She has also noticed a little bit increase in edema in both lower extremities. Slow but worse than left. No history of DVT. No other complaints at this time. She says she did take 1 of her home Vicodin which has helped her and her pain is starting to subside since arriving here. TRAVEL OUTSIDE OF THE [place] IN LAST 30 DAYS: No - Related Data Allergies/Adverse Reactions: cefaclor [From Ceclor] Allergy (Verified 08/30/18 17:37) nitrofurantoin [From Macrobid] Allergy (Verified 08/30/18 17:37) Sulfa (Sulfonamide Antibiotics) Allergy (Verified 08/30/18 17:37) Past Medical History - General Information source: Patient - Social History Smoking Status: Never Smoker Frequency of alcohol use: None Drug Abuse: None Family History: Reviewed & Not Pertinent Patient has suicidal ideation: No Patient has homicidal ideation: No - Past Medical History Cardiac Medical History: Reports: Hx Coronary Artery Disease Neurological Medical History: Reports: Hx Migraine Renal/ Medical History: Denies: Hx Peritoneal Dialysis Musculoskeletal Medical History: Reports Hx Arthritis, Reports Hx Fibromyalgia Psychiatric Medical History: Reports: Hx Depression Past Surgical History: Reports: Hx Breast Surgery, Hx Cardiac Surgery - Bipass x4, Hx Hysterectomy, Hx Orthopedic Surgery - Immunizations Hx Diphtheria, Pertussis, Tetanus Vaccination: Yes Review of Systems - Review of Systems Notes: My Normal Review Basic REVIEW OF SYSTEMS: CONSTITUTIONAL : Denies fever, chills, or sweats. Denies recent illness. EENT: Denies eye, ear, throat, or mouth pain or symptoms. Denies nasal or sinus congestion. CARDIOVASCULAR: Some palpitations RESPIRATORY: Denies cough, cold, or chest congestion. Denies shortness of breath, difficulty breathing, or wheezing. GASTROINTESTINAL: Denies abdominal pain. Denies nausea, vomiting, or diarrhea. Denies constipation. Last BM: GENITOURINARY: Denies difficulty urinating, painful urination, burning, frequency, or blood in urine. MUSCULOSKELETAL: Left foot pain SKIN: Denies rash or skin lesions. NEUROLOGICAL: Denies altered mental status or loss of consciousness. Denies headache. Denies weakness or paralysis or loss of use of either side. Denies problems with gait or speech. Denies sensory or motor loss. ALL OTHER SYSTEMS REVIEWED AND NEGATIVE. Physical Exam - Vital signs Vitals: Temp Pulse Resp BP Pulse Ox 97.7 F 68 16 104/67 95 08/30/18 17:50 08/30/18 17:50 08/30/18 17:50 08/30/18 17:50 08/30/18 17:50 - Notes Notes: General Appearance: Well nourished, alert, cooperative, no acute distress, mild obvious discomfort. Vitals: reviewed, See vital signs table. Head: no swelling or tenderness to the head Eyes: PERRL, EOMI, Conjuctiva clear Mouth: No decreasd moisture Lungs: No wheezing, No rales, No rhonci, No accessory muscle use, good air exchange bilaterally. Heart: Normal rate, Regular rythm, No murmur, no rub Abdomen: Normal BS, soft, No rigidity, No abdominal tenderness, No guarding, no rebound, no abdominal masses, no organomegaly Extremities: strength 5/5 in all extremities, good pulses in all extremities, patient has obvious chronic deformity to the left foot. Trace edema bilateral lower extremities. Skin: warm, dry, appropriate color, no rash Neuro: speech clear, oriented x 3, normal affect, responds appropriately to questions. Course - Re-evaluation Re-evalutation: 08/31/18 06:34 He stopped it was ordered in triage. This is negative. Laboratory evaluation is unremarkable. Appears the patient's symptoms are related to the pain in her foot. She is a bit discouraged being that she does have history of cardiac disease which is preventing her from receiving a surgery this is needed on her foot. I encouraged her to talk with the ignition expert at length and discussed whether not a referral to a tertiary care center with a more complex foot and ankle team would be appropriate. I recommended a [place] or [facility]. She says she would talk to her doctor about this. Also she has had some recurrent edema in lower extremities and therefore will place her on low-dose Lasix. Encouraged her return to ER if she has chest pain, difficulty breathing, worsening foot pain, or she feels unwell. Patient agrees with plan will be discharged home. Dictation of this chart was performed using voice recognition software; therefore, there may be some unintended grammatical errors. - Vital Signs Vital signs: Temp Pulse Resp BP Pulse Ox 97.7 F 68 16 104/67 95 08/30/18 17:50 08/30/18 17:50 08/30/18 17:50 08/30/18 17:50 08/30/18 17:50 - Laboratory Result Diagrams: 08/30/18 20:08 08/30/18 20:08 Laboratory results interpreted by me: 08/30/18 08/30/18 20:08 20:08 Monocytes % 14.5 H TSH 0.31 L Discharge - Discharge Clinical Impression: Foot pain, left Edema Qualifiers: Edema type: unspecified Qualified Code(s): R60.9 - Edema, unspecified Condition: Good Disposition: HOME, SELF-CARE Additional Instructions: Please follow-up with your doctor for reevaluation. Your thyroid function is a little bit high today. Sometimes thyroid function fluctuates from day-to-day and therefore this does not mean that you need treatment but it does need to be followed closely by your doctor. Being that you are having recurrent edema in your lower extremities I will place you on a low-dose of a water pill called Lasix. Please take it as prescribed. This will make you urinate more. Please follow-up with your ignition expert and talk to him about further surgical options. Ask you ignition expert if they feel a referral to a ankle and web specialist at a tertiary center such as [place] or [facility] would be of benefit. This may or may not be of benefit but is worth asking. Please return to the ER if you have any further concerns. Prescriptions: Furosemide [Lasix] 10 mg PO DAILY #15 tablet Referrals: ZAC LOZA PA [Primary Care Provider] - 09/01/18
[2018-08-30] MEDS ORDERED: FUROSEMIDE 40 MG TABLET ONE (23:39)
--- NOTE | 2018-08-31 09:10 | XCELERA REPORT ---
[address] [place] [facility] [address] Lower Extremity Venous Evaluation Procedure: Color flow and duplex imaging of the veins of the left lower extremity as well as the right Common Femoral vein. Right Sided Venous Evaluation The right common femoral vein is fully compressible. Spontaneous and phasic flow is present in the right common femoral vein. Left Sided Venous Evaluation Normal vessel filling wall to wall, compression and augmentation as well as Colour flow down to the infrageniculate veins. Interpretation Summary No duplex evidence of DVT or obstruction in the left lower extremity nor in the right Common Femoral vein. Name: KINGA DALAL Age: 62 yrs Gender: Female : 1955 Patient Status: Emergency Patient Location: ER Study Date: 08/30/2018 09:18 PM Reason For Study: lle swelling pain Ordering Physician: MARISELA TRAN Performed By: Jennifer Armijo : MARISELA TRAN > Raymond Foster
== END 2018-08-30 23:50 | disposition home or self-care (01) ==
LOC: ER 17:36
DX: M79.672 Pain in left foot (principal); G89.29 Other chronic pain; S97.82XS Crushing injury of left foot, sequela; X58.XXXS Exposure to other specified factors, sequela; R00.2 Palpitations; R60.0 Localized edema; I25.10 Atherosclerotic heart disease of native coronary artery without angina pectoris; Z95.1 Presence of aortocoronary bypass graft; Z88.1 Allergy status to other antibiotic agents; Z88.2 Allergy status to sulfonamides
CPT/HCPCS: 36415; 80053; 84443; 84484; 85025; 93005; 93010; 93971; 99285

== ENCOUNTER → 2018-09-18 | Outpatient (CLI) | payer BC, MEDICAID ==
--- NOTE | 2018-09-18 13:31 | WOMENS IMAGING REPORT ---
EXAM DESCRIPTION: U/S BREAST UNILAT LIMITED COMPLETED DATE/TIME: 09/18/2018 12:54 pm REASON FOR STUDY: LEFT BREAST MASS N63.21 N63.21 UNSPECIFIED LUMP IN THE LEFT BREAST, UPPER OUTER Q UAD COMPARISON: Mammogram dated 06/19/2018. TECHNIQUE: Real-time and static grayscale imaging performed of the left breast targeted to the area of clinical/mammographic concern. Selected color Doppler images recorded. LIMITATIONS: None. FINDINGS: MASS: In the lateral breast there are several small round hypoechoic nodules which appear cystic measuring between 2 and 3 mm. No solid mass identified. Normal glandular tissue. OTHER: No other significant finding. IMPRESSION: Small cystic nodules in the lateral breast. No worrisome sonographic findings. BIRAD: 2 Benign findings. RECOMMENDATION: RECOMMENDED FOLLOW-UP: Resume routine screening mammography. COMMENT: The [employer] (ACR) has developed recommendations for screening MRI of the breasts in certain patient populations, to be used in conjunction with mammography. Breast MRI s urveillance may be appropriate for women with more than 20% lifetime risk of developing breast cancer as determined by genetic testing, significant family history of the disease, or history of mantle r adiation for Hodgkins Disease. ACR Practice Guidelines 2008. TECHNICAL DOCUMENTATION: JOB ID: [id number] [employer]- All Rights Reserved Reading location - IP/workstation name: [email or web address]
== END ==
LOC: WI 13:11
PROVIDERS: ATTEND Physician Assistant
DX: N63.21 Unspecified lump in the left breast, upper outer quadrant (principal)
CPT/HCPCS: 76642

== ENCOUNTER → 2018-12-23 | Outpatient (CLI) | payer OTHER, MEDICAID ==
[2018-12-23 14:14] LABS: ABSOLUTE EOSINOPHILS # (AUTO) 0.4 10^3/uL (0.0-0.6); ABSOLUTE LYMPHOCYTES (AUTO) 1.5 10^3/uL (0.5-4.7); ABSOLUTE MONOCYTES (AUTO) 0.8 10^3/uL (0.1-1.4); ABSOLUTE NEUT (AUTO) 3.3 10^3/uL (1.7-8.2); BASOPHILS % (AUTO) 0.6 % (0-2); EOSINOPHILS % (AUTO) 6.7 % (0-6); HEMATOCRIT 44.1 % (36.0-47.0); HEMOGLOBIN 15.2 g/dL (12.0-15.5); LYMPHOCYTES % (AUTO) 24.4 % (13-45); MEAN CORPUSCULAR HEMOGLOBIN 30.8 pg (27.0-33.4); MEAN CORPUSCULAR HGB CONC 34.4 g/dL (32.0-36.0); MEAN CORPUSCULAR VOLUME 90 fl (80-97); MONOCYTES % (AUTO) 13.8 % (3-13); PLATELET COUNT 352 10^3/uL (150-450); RED BLOOD COUNT 4.92 10^6/uL (3.72-5.28); RED CELL DISTRIBUTION WIDTH 14.3 % (11.5-14.0); SEGMENTED NEUTROPHILS % (AUTO) 54.5 % (42-78); TOTAL CELLS COUNTED % (AUTO) 100 %; WHITE BLOOD COUNT 6.1 10^3/uL (4.0-10.5)
[2018-12-23 14:37] LABS: CREATINE KINASE MB 1.89 ng/mL (<4.55)
[2018-12-23 14:42] LABS: TROPONIN I < 0.012 ng/mL
[2018-12-24 08:12] LABS: ALANINE AMINOTRANSFERASE 23 U/L (9-52); ALBUMIN 4.6 g/dL (3.5-5.0); ALKALINE PHOSPHATASE 82 U/L (38-126); ANION GAP 12 (5-19); ASPARTATE AMINO TRANSFERASE 22 U/L (14-36); BILIRUBIN,DIRECT 0.2 mg/dL (0.0-0.4); BILIRUBIN,TOTAL 0.3 mg/dL (0.2-1.3); BLOOD UREA NITROGEN 18 mg/dL (7-20); CALCIUM 9.4 mg/dL (8.4-10.2); CARBON DIOXIDE 25 mmol/L (22-30); CHLORIDE 102 mmol/L (98-107); GLUCOSE 117 mg/dL (75-110); POTASSIUM 4.3 mmol/L (3.6-5.0); SODIUM 138.8 mmol/L (137-145); TOTAL PROTEIN 7.2 g/dL (6.3-8.2)
== END ==
LOC: OD 12:57
PROVIDERS: ATTEND Physician Assistant
DX: R07.9 Chest pain, unspecified (principal)
CPT/HCPCS: 36415; 80053; 82550; 82553; 84443; 84484; 85025

== ENCOUNTER 2019-01-10 07:06 | Emergency (ER) | payer OTHER, MEDICAID ==
[2019-01-10] MEDS ORDERED: MORPHINE SULFATE 10 MG/ML INJ IV ONE ×2 (07:29→08:56)
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
[2019-01-10] MEDS ORDERED: ACETAMINOPHEN 325 MG TABLET PO ONE (08:58)
[2019-01-10 09:36] LABS: ABSOLUTE BASOPHILS # (AUTO) 0.1 10^3/uL (0.0-0.2); ABSOLUTE EOSINOPHILS # (AUTO) 0.3 10^3/uL (0.0-0.6); ABSOLUTE MONOCYTES (AUTO) 1.3 10^3/uL (0.1-1.4); ABSOLUTE NEUT (AUTO) 9.8 10^3/uL (1.7-8.2); BASOPHILS % (AUTO) 0.4 % (0-2); EOSINOPHILS % (AUTO) 2.3 % (0-6); HEMATOCRIT 37.3 % (36.0-47.0); HEMOGLOBIN 12.6 g/dL (12.0-15.5); LYMPHOCYTES % (AUTO) 7.8 % (13-45); MEAN CORPUSCULAR HEMOGLOBIN 30.7 pg (27.0-33.4); MEAN CORPUSCULAR HGB CONC 33.9 g/dL (32.0-36.0); MEAN CORPUSCULAR VOLUME 91 fl (80-97); MONOCYTES % (AUTO) 10.3 % (3-13); PLATELET COUNT 354 10^3/uL (150-450); RED BLOOD COUNT 4.11 10^6/uL (3.72-5.28); SEGMENTED NEUTROPHILS % (AUTO) 79.2 % (42-78); TOTAL CELLS COUNTED % (AUTO) 100 %; WHITE BLOOD COUNT 12.4 10^3/uL (4.0-10.5)
[2019-01-10 09:49] LABS: ALANINE AMINOTRANSFERASE 33 U/L (9-52); ALBUMIN 3.9 g/dL (3.5-5.0); ALKALINE PHOSPHATASE 79 U/L (38-126); ANION GAP 8 (5-19); ASPARTATE AMINO TRANSFERASE 34 U/L (14-36); BILIRUBIN,DIRECT 0.2 mg/dL (0.0-0.4); BILIRUBIN,TOTAL 0.3 mg/dL (0.2-1.3); BLOOD UREA NITROGEN 20 mg/dL (7-20); CALCIUM 9.1 mg/dL (8.4-10.2); CARBON DIOXIDE 28 mmol/L (22-30); CHLORIDE 103 mmol/L (98-107); GLUCOSE 92 mg/dL (75-110); LIPASE 59.6 U/L (23-300); POTASSIUM 4.5 mmol/L (3.6-5.0); SODIUM 138.6 mmol/L (137-145); TOTAL PROTEIN 6.4 g/dL (6.3-8.2)
[2019-01-10] MEDS ORDERED: ONDANSETRON ODT 4 MG TAB (6 TAB/ER DISP) PO PRN (12:21)
[2019-01-10 13:04] VITALS: BP 115/73
--- NOTE | 2019-01-11 00:15 | EKG REPORT ---
SEVERITY:- BORDERLINE ECG - SINUS RHYTHM PROBABLE LEFT ATRIAL ABNORMALITY : Confirmed by: Robert Harrell 11-Jan-2019 00:15:08
== END 2019-01-10 13:00 | disposition home or self-care (01) ==
LOC: EEVIPCON 07:06 → ER 07:06
DX: S02.2XXA Fracture of nasal bones, initial encounter for closed fracture (principal); S40.022A Contusion of left upper arm, initial encounter; S40.021A Contusion of right upper arm, initial encounter; S80.12XA Contusion of left lower leg, initial encounter; S80.11XA Contusion of right lower leg, initial encounter; S20.02XA Contusion of left breast, initial encounter; S20.01XA Contusion of right breast, initial encounter; S30.1XXA Contusion of abdominal wall, initial encounter; S10.93XA Contusion of unspecified part of neck, initial encounter; S00.03XA Contusion of scalp, initial encounter; S20.221A Contusion of right back wall of thorax, initial encounter; S20.212A Contusion of left front wall of thorax, initial encounter; R07.9 Chest pain, unspecified; M54.2 Cervicalgia; Y04.2XXA Assault by strike against or bumped into by another person, initial encounter; Z79.02 Long term (current) use of antithrombotics/antiplatelets; R06.02 Shortness of breath; R11.0 Nausea; R25.2 Cramp and spasm; I25.10 Atherosclerotic heart disease of native coronary artery without angina pectoris; Z88.1 Allergy status to other antibiotic agents; Z88.2 Allergy status to sulfonamides; Z95.1 Presence of aortocoronary bypass graft
CPT/HCPCS: 93005; 96376; 99285; 96374; 36415; 83690; 85025; 80053; 84484; 70450; 70486; 71260; 72125; 74177; 93010; J2270

== ENCOUNTER → 2019-04-21 | Outpatient (CLI) | payer OTHER, MEDICAID ==
[2019-04-21 18:54] LABS: CHOLESTEROL 205.81 mg/dL (0-200); TRIGLYCERIDES 135 mg/dL (<150)
[2019-04-21 19:05] LABS: DIRECT LDL 133 mg/dL (<100)
== END ==
LOC: OD 16:27
PROVIDERS: ATTEND Internal Medicine Cardiovascular Disease
DX: E78.5 Hyperlipidemia, unspecified (principal); I25.10 Atherosclerotic heart disease of native coronary artery without angina pectoris
CPT/HCPCS: 36415; 80061

== ENCOUNTER → 2019-04-28 | Outpatient (CLI) | payer OTHER, MEDICAID ==
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
== END ==
LOC: OD 17:01
PROVIDERS: ATTEND Physician Assistant
DX: M79.662 Pain in left lower leg (principal)

== ENCOUNTER 2019-05-11 08:44 | Day surgery (SDC) | payer OTHER, MEDICAID ==
[~2019-05-11 08:44] MED LIST: BUPIVACAINE HCL 0.75% INJ/PF (7.5 MG/1 ML) 10 ML SDV OD PRN; CHONDR SU A NA/HYALUR INTRAOC KIT (SURGICARE) ONE; EPINEPHRINE INJ/PF 1 MG/1 ML AMPULE ONE; KETOROLAC TROMETHAMINE 0.45% 4 DROP/0.4 ML DROPERETTE OD PRN; LIDOCAINE 4% INJ/PF (40 MG/ML) 5 ML AMPUL OD PRN; PHENYLEPHRINE/KETOROLAC 1%-0.3% 4 ML VIAL ONE
[2019-05-11] MEDS: TETRACAINE HCL 0.5% OPH SOLN 0.6 ML DROPERETTE OD PRN ×2 (09:12→09:33)
[2019-05-11] MEDS: CYCLOPENTOLATE 0.2%/PHENYLEPHRINE 1% OPH SOLN 2 ML OD PRN ×3 (09:13→09:33)
[2019-05-11] MEDS: TROPICAMIDE 1% OPH SOLN 3 ML OD PRN ×3 (09:13→09:33)
[2019-05-11] MEDS: BESIFLOXACIN HCL 0.6% OPH SUSP 5 ML BOTTLE OD PRN ×4 (09:13→10:07)
[2019-05-11] MEDS ORDERED: PHENYLEPHRINE/KETOROLAC 1%-0.3% 4 ML VIAL ONE (09:26)
[2019-05-11] MEDS ORDERED: LIDOCAINE 1% INJ-PF (10 MG/ML) 30 ML SDV ONE (09:30)
[2019-05-11] MEDS ORDERED: FENTANYL CITRATE INJ/PF 100 MCG/2 ML AMPUL ONE (09:41)
[2019-05-11] MEDS ORDERED: MIDAZOLAM 2 MG/2 ML INJ ONE (09:41)
[2019-05-11] MEDS: DORZOLAMIDE HCL 2%/TIMOLOL MALEAT 0.5% OPH SOLN 10 ML OD PRN ×2 (10:07)
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
--- NOTE | 2019-05-11 11:25 | [facility] DISCHARGE SUMMARY E ---
[facility] Discharge Summary NAME: KINGA DALAL AGE: 63Y ADMITTED: 05/11/2019 DISCHARGED: 05/11/2019 FINAL DIAGNOSIS: Cataract, right eye. HOSPITAL COURSE: The patient is a 63-year-old lady who underwent uneventful cataract extraction with intraocular lens implant, right eye, on 05/11/2019. She will be discharged to home. She was instructed to resume preoperative medications; to take Tylenol as needed for discomfort; to keep her eye shielded; to use Pred Forte, Ilevro, and Vigamox at 3 p.m. and 8 p.m.; and to follow up in my office in 1 day. DICTATING PHYSICIAN: SUSY LEE M.D. [id number] PHY#: [id number] ID: [id number] JOB#: [id number] ACCT: [id number] cc:SUSY LEE M.D. >
== END 2019-05-11 10:50 | disposition home or self-care (01) ==
LOC: SC 08:44
PROVIDERS: ATTEND Ophthalmology
DX: H25.813 Combined forms of age-related cataract, bilateral (principal); H34.231 Retinal artery branch occlusion, right eye; D32.0 Benign neoplasm of cerebral meninges; I11.9 Hypertensive heart disease without heart failure; E78.00 Pure hypercholesterolemia, unspecified; J45.909 Unspecified asthma, uncomplicated; M79.7 Fibromyalgia; Z87.891 Personal history of nicotine dependence; Z79.899 Other long term (current) drug therapy
CPT/HCPCS: 66984; V2632; J2250; J3490 ×4; J3010; C9447; 142; J0171

== ENCOUNTER 2019-06-08 06:37 | Day surgery (SDC) | payer OTHER, MEDICAID ==
[~2019-06-08 06:37] MED LIST changes: -BUPIVACAINE HCL 0.75% INJ/PF (7.5 MG/1 ML) 10 ML SDV OD PRN; +BUPIVACAINE HCL 0.75% INJ/PF (7.5 MG/1 ML) 10 ML SDV OS PRN; -CHONDR SU A NA/HYALUR INTRAOC KIT (SURGICARE) ONE; -EPINEPHRINE INJ/PF 1 MG/1 ML AMPULE ONE; -KETOROLAC TROMETHAMINE 0.45% 4 DROP/0.4 ML DROPERETTE OD PRN; +KETOROLAC TROMETHAMINE 0.45% 4 DROP/0.4 ML DROPERETTE OS PRN; -LIDOCAINE 4% INJ/PF (40 MG/ML) 5 ML AMPUL OD PRN; +LIDOCAINE 4% INJ/PF (40 MG/ML) 5 ML AMPUL OS PRN; -PHENYLEPHRINE/KETOROLAC 1%-0.3% 4 ML VIAL ONE
[2019-06-08] MEDS: CYCLOPENTOLATE 0.2%/PHENYLEPHRINE 1% OPH SOLN 2 ML OS PRN ×3 (06:50→07:10)
[2019-06-08] MEDS: TROPICAMIDE 1% OPH SOLN 3 ML OS PRN ×3 (06:50→07:10)
[2019-06-08] MEDS: BESIFLOXACIN HCL 0.6% OPH SUSP 5 ML BOTTLE OS PRN ×4 (06:51→07:53)
[2019-06-08] MEDS: TETRACAINE HCL 0.5% OPH SOLN 0.6 ML DROPERETTE OS PRN ×2 (06:51→07:25)
[2019-06-08] MEDS ORDERED: EPINEPHRINE INJ/PF 1 MG/1 ML AMPULE ONE (07:12)
[2019-06-08] MEDS ORDERED: MIDAZOLAM 2 MG/2 ML INJ ONE (07:22)
[2019-06-08] MEDS ORDERED: FENTANYL CITRATE INJ/PF 100 MCG/2 ML AMPUL ONE (07:32)
[2019-06-08] MEDS: LIDOCAINE 1% INJ-PF (10 MG/ML) 30 ML SDV ONE ×2 (07:42)
[2019-06-08] MEDS: PHENYLEPHRINE/KETOROLAC 1%-0.3% 4 ML VIAL ONE ×2 (07:42)
[2019-06-08] MEDS: CHONDR SU A NA/HYALUR INTRAOC KIT (SURGICARE) ONE ×2 (07:42)
[2019-06-08] MEDS: DORZOLAMIDE HCL 2%/TIMOLOL MALEAT 0.5% OPH SOLN 10 ML OS PRN ×2 (07:53)
[2019-06-08] MEDS ORDERED: ONDANSETRON HCL INJ/PF 4 MG/2 ML SDV ONE (07:57)
--- NOTE | 2019-06-08 08:15 | [facility] DISCHARGE SUMMARY E ---
[facility] Discharge Summary NAME: KINGA DALAL AGE: 63Y ADMITTED: 06/08/2019 DISCHARGED: 06/08/2019 HOSPITAL COURSE: The patient is a 63-year-old lady who underwent uneventful cataract extraction with intraocular lens implant left eye on 06/08/2019. She will be discharged to home. She is instructed to resume preoperative medications, to take Tylenol as needed for discomfort, to keep her eye shielded, to use Vigamox, Ilevro, and Pred Forte at 3 p.m. and 8 p.m., and to follow up in my office in 1 day. DICTATING PHYSICIAN: SUSY LEE M.D. [id number] PHY#: [id number] ID: [id number] JOB#: [id number] ACCT: [id number] cc:SUSY LEE M.D. >
--- NOTE | 2019-06-08 08:15 | [facility] OPERATIVE REPORT E ---
[facility] Operative Report NAME: KINGA DALAL AGE: 63Y DATE OF SURGERY: 06/08/2019 ROOM: PREOPERATIVE DIAGNOSIS: Cataract, left eye. POSTOPERATIVE DIAGNOSIS: Cataract, left eye. PROCEDURE PERFORMED: Phacoemulsification with posterior chamber intraocular lens, left eye. SURGEON: SUSY LEE M.D. ANESTHESIA: Topical with MAC. INDICATIONS FOR SURGERY: Difficulty reading small print. PROCEDURE: The patient was brought to the Operating Room and placed on the operative table. Following tetracaine drops, topical anesthesia was administered. This consisted of instrument wipe pledgets soaked in a solution of 4% Xylocaine mixed with 0.75% Marcaine in a 1:2 ratio. A 2 x 1 cm pledget was placed in the superior fornix. A 1 x 1 cm pledget was placed in the inferior fornix. The eye was patched shut for 5 minutes. The patch was removed. The eye was sterilely prepped and draped in the usual manner. Lid speculum was placed in the eye. The pledgets were removed. 4-0 black silk sutures were placed around the superior and the inferior rectus muscles to be used as traction. A conjunctival peritomy was made at the 10 o'clock position. Hemostasis was obtained with bipolar cautery. A posterior limbal groove was created using a crescent knife and dissected anteriorly towards the cornea. A sharp point blade was used to create a paracentesis site at the 2 o'clock position. A 2.4 mm keratome was used to enter the anterior chamber through the groove. Viscoelastic was injected into the anterior chamber. An anterior capsulotomy was performed using Utrata forceps in a capsulorrhexis fashion. Hydrodissection and hydrodelineation were performed. Phacoemulsification was performed in qijgxq-nhn-zmrvdal technique. A total of 3.18 CDE phaco time was used. Following this, the I/A unit was used to remove residual cortex. Viscoelastic was injected into the capsular bag. Intraocular lens model [id number], 18.5 diopters, serial number [id number] was placed in the capsular bag. The I/A unit was used to remove residual viscoelastic. The wound was seen to be watertight under high and low pressure, and no sutures were placed. The intraocular lens was well centered. The pressure was adjusted in the eye to normal pressure. The 4-0 black silk sutures and lid speculum were removed. The eye was shielded after Besivance drops were placed. The patient tolerated the procedure well and was sent to the Recovery Room in good condition. A drop of Cosopt was placed in the eye at the end of the surgery. DICTATING PHYSICIAN: SUSY LEE M.D. [id number] PHY#: [id number] ID: [id number] JOB#: [id number] ACCT: [id number] cc:SUSY LEE M.D. >
== END 2019-06-08 08:28 | disposition home or self-care (01) ==
LOC: SC 06:37
PROVIDERS: ATTEND Ophthalmology
DX: H25.812 Combined forms of age-related cataract, left eye (principal); Z96.1 Presence of intraocular lens; J45.909 Unspecified asthma, uncomplicated; R00.2 Palpitations; M79.7 Fibromyalgia; R01.1 Cardiac murmur, unspecified; Z86.010 Personal history of colon polyps; Z79.01 Long term (current) use of anticoagulants; Z79.51 Long term (current) use of inhaled steroids
CPT/HCPCS: 66984; V2632; J2250; J3490 ×4; J3010; J2405; C9447; 142; J0171

== ENCOUNTER 2019-09-03 16:55 | Emergency (ER) | payer OTHER, MEDICAID | END 2019-09-03 17:35 | disposition left against medical advice (07) | LOC: ER 16:55 | DX: Z53.21 Procedure and treatment not carried out due to patient leaving prior to being seen by health care provider (principal); R51 Headache ==

== ENCOUNTER 2019-09-07 10:18 | Emergency (ER) | payer OTHER, MEDICAID ==
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
[2019-09-07] MEDS ORDERED: ONDANSETRON HCL INJ/PF 4 MG/2 ML SDV IV ONE (11:52)
[2019-09-07] MEDS ORDERED: HYDROMORPHONE HCL INJ/PF 2 MG/ML AMPULE IV ONE (11:52)
[2019-09-07 12:07] LABS: ABSOLUTE EOSINOPHILS # (AUTO) 0.1 10^3/uL (0.0-0.6); ABSOLUTE LYMPHOCYTES (AUTO) 1.8 10^3/uL (0.5-4.7); ABSOLUTE MONOCYTES (AUTO) 0.7 10^3/uL (0.1-1.4); ABSOLUTE NEUT (AUTO) 1.8 10^3/uL (1.7-8.2); BASOPHILS % (AUTO) 0.5 % (0-2); EOSINOPHILS % (AUTO) 3.3 % (0-6); HEMATOCRIT 40.7 % (36.0-47.0); HEMOGLOBIN 13.6 g/dL (12.0-15.5); MEAN CORPUSCULAR HEMOGLOBIN 29.5 pg (27.0-33.4); MEAN CORPUSCULAR HGB CONC 33.4 g/dL (32.0-36.0); MEAN CORPUSCULAR VOLUME 88 fl (80-97); MONOCYTES % (AUTO) 15.1 % (3-13); PLATELET COUNT 325 10^3/uL (150-450); RED BLOOD COUNT 4.61 10^6/uL (3.72-5.28); RED CELL DISTRIBUTION WIDTH 14.7 % (11.5-14.0); SEGMENTED NEUTROPHILS % (AUTO) 41.1 % (42-78); TOTAL CELLS COUNTED % (AUTO) 100 %; WHITE BLOOD COUNT 4.5 10^3/uL (4.0-10.5)
[2019-09-07 12:26] LABS: ALBUMIN 4.2 g/dL (3.5-5.0); ALKALINE PHOSPHATASE 78 U/L (38-126); ANION GAP 8 (5-19); ASPARTATE AMINO TRANSFERASE 18 U/L (14-36); BILIRUBIN,DIRECT 0.1 mg/dL (0.0-0.4); BILIRUBIN,TOTAL 0.1 mg/dL (0.2-1.3); BLOOD UREA NITROGEN 14 mg/dL (7-20); CALCIUM 9.1 mg/dL (8.4-10.2); CARBON DIOXIDE 27 mmol/L (22-30); CHLORIDE 97 mmol/L (98-107); GLUCOSE 87 mg/dL (75-110); POTASSIUM 4.2 mmol/L (3.6-5.0)
--- NOTE | 2019-09-07 12:40 | RADIOLOGY REPORT (SQ) ---
EXAM DESCRIPTION: CT HEAD WITHOUT COMPLETED DATE/TIME: 09/07/2019 12:22 pm REASON FOR STUDY: headache h/o meningioma COMPARISON: CT of the head without contrast from 01/10/2019. TECHNIQUE: Axial images acquired through the brain without intravenous contrast. Images reviewed wi th bone, brain and subdural windows. Additional sagittal and coronal reconstructions were generated. Images stored on PACS. All CT scanners at this facility use dose modulation, iterative reconstruction, and/or weight based d osing when appropriate to reduce radiation dose to as low as reasonably achievable (ALARA). [facility]: Dose Right [facility]: CareDose [facility]: Dose Right [facility]: Teradose 4D [facility]: [place] RADIATION DOSE: CT Rad equipment meets quality standard of care and radiation dose reduction techniq ues were employed. CTDIvol: 53.2 mGy. DLP: 1017 mGy-cm. mGy. LIMITATIONS: None. FINDINGS: There is no acute intracranial hemorrhage, vascular territorial infarct, extra-axial colle ction, mass effect, or midline shift. There is no effacement of cerebral sulci or basal subarachnoid cisterns. The gilbert-white matter differentiation is preserved. The caliber the ventricles is concor dant with degree of sulcation ; there is no hydrocephalus. The orbits are intact. There is no fracture of the calvarium. The paranasal sinuses and the mastoid air cells are clear. IMPRESSION: No acute intracranial abnormality. EVIDENCE OF ACUTE STROKE: NO. COMMENT: Quality ID # [id number]: Final reports with documentation of one or more dose reduction techniques (e.g., Automated exposure control, adjustment of the mA and/or kV according to patient size, use of iterative reconstruction technique) TECHNICAL DOCUMENTATION: JOB ID: [id number] [employer]- All Rights Reserved Reading location - IP/workstation name: [email or web address]
[2019-09-07] MEDS ORDERED: MAG HYDROX/AL HYDROX/SIMETH SUSP 30 ML UDCUP PO PRN (12:50)
--- NOTE | 2019-09-07 13:33 | EKG REPORT ---
SEVERITY:- BORDERLINE ECG - SINUS RHYTHM PROBABLE LEFT ATRIAL ABNORMALITY : Confirmed by: Socrates Nieto MD 07-Sep-2019 13:32:51
--- NOTE | 2019-09-07 13:33 | RADIOLOGY REPORT (SQ) ---
EXAM DESCRIPTION: KNEE RIGHT 4 VIEWS COMPLETED DATE/TIME: 09/07/2019 1:08 pm REASON FOR STUDY: pain COMPARISON: None. NUMBER OF VIEWS: Four views. TECHNIQUE: AP, lateral, and both oblique radiographic images acquired of the right knee. LIMITATIONS: None. FINDINGS: MINERALIZATION: Normal. BONES: No acute fracture or dislocation. JOINT: Moderate femorotibial osteoarthrosis. No joint effusion. SOFT TISSUES: No soft tissue swelling or radiopaque foreign body. OTHER: No other finding. IMPRESSION: Moderate femorotibial osteoarthrosis. No acute osseous abnormality. TECHNICAL DOCUMENTATION: JOB ID: [id number] [employer]- All Rights Reserved Reading location - IP/workstation name: [email or web address]
[2019-09-07 15:08] VITALS: BP 163/86
== END 2019-09-07 15:19 | disposition home or self-care (01) ==
LOC: ER 10:18 → EEVIPCON 10:18 → ER 15:19
DX: R51 Headache (principal); M79.7 Fibromyalgia; H91.92 Unspecified hearing loss, left ear; M25.50 Pain in unspecified joint; M25.40 Effusion, unspecified joint; I25.10 Atherosclerotic heart disease of native coronary artery without angina pectoris; I10 Essential (primary) hypertension; Z95.5 Presence of coronary angioplasty implant and graft; Z88.1 Allergy status to other antibiotic agents
CPT/HCPCS: 93005; 36415; 85025; 80053; 73564; 70450; 93010; J1170; J2405; 96374; 96375; 99284